=== PATIENT | female | born 1940 | race Caucasian/White ===

== ENCOUNTER 2021-02-06 11:35 | Outpatient (CLI) | payer MEDICARE, SELFPAY ==
[2021-02-06 11:46] LABS: Basophils Absolute Auto 0.03 K/mm3 (0.00-0.10); Basophils Percent Auto 0.4 % (0.0-1.0); Eosinophils Absolute Auto 0.14 K/mm3 (0.02-0.50); Eosinophils Percent Auto 1.7 % (1.0-6.0); Hematocrit 43.1 % (35.0-42.0); Hemoglobin 14.2 g/dL (11.7-13.8); Immature Granulocyte Absolute 0.03 K/mm3 (0.00-0.00); Immature Granulocyte Percent A 0.4 % (0.0-0.0); Lymphocytes Absolute Auto 1.98 K/mm3 (1.10-4.50); Lymphocytes Percent Auto 23.9 % (18.0-42.0); Mean Corpuscular HGB Conc 32.9 g/dL (32.0-36.0); Mean Corpuscular Hemoglobin 30.5 pg (27.0-31.0); Mean Corpuscular Volume 92.5 fL (78.0-102.0); Mean Platelet Volume 9.6 fl (9.2-11.8); Monocytes Absolute Auto 0.61 K/mm3 (0.10-0.90); Monocytes Percent Auto 7.4 % (2.0-11.0); Neutrophils Absolute Auto 5.5 K/mm3 (1.7-7.2); Neutrophils Percent Auto 66.2 % (50.0-70.0); Platelet Count Result 251 K/mm3 (150-420); Red Blood Count 4.66 M/mm3 (4.20-5.40); Red Cell Distribution Width 12.9 % (11.6-14.4); White Blood Count 8.3 K/mm3 (4.8-10.8)
[2021-02-06 11:54] LABS: Add Urine Microscopic? YES; Appearance Urine Clear (Clear); Bilirubin Urine Negative (Negative); Blood Urine Negative (Negative); Color Urine Yellow (Yellow); Glucose Urine UA Negative (Negative); Ketones Urine Negative (Negative); Leukocyte Esterase Ur 1+ (Negative); Nitrate Urine Negative (Negative); Protein Urine Negative (Negative); Urobilinogen Urine 0.2 mg/dL (0.2-1.0)
[2021-02-06 12:03] LABS: Bacteria Urine Trace /hpf; RBC Urine 0-2 /hpf (0-2); Squamous Epithelial Cell Urine Few /hpf (Few); WBC Urine 0-3 /hpf (0-3)
[2021-02-06 13:07] LABS: Alanine Aminotransferase 26 U/L (14-59); Albumin Level 3.8 g/dL (3.4-5.0); Alkaline Phosphatase 91 U/L (46-116); Anion Gap 8 mmol/L (8-16); Aspartate Amino Transferase 21 U/L (15-37); Bilirubin,Total 0.5 mg/dL (0.00-1.00); Blood Urea Nitrogen 22 mg/dL (7-18); Calcium 9.6 mg/dL (8.5-10.1); Carbon Dioxide 30 mmol/L (21-32); Chloride 102 mmol/L (98-108); Estimated Glomerular Filt Rate > 60; Glucose 80 mg/dL (70-99); Osmolality Calculated 292 mOsm/kg (285-295); Potassium 4.5 mmol/L (3.5-5.1); Sodium 140 mmol/L (136-145); Thyroid Stimulating Hormone 1.68 uIU/mL (0.36-3.74); Total Protein 7.3 g/dL (6.4-8.2)
== END 2021-02-06 11:36 | disposition home or self-care (01) ==
LOC: CHSLAB 11:38
PROVIDERS: PCP Internal Medicine; Visit Provider Internal Medicine
DX: I10 Essential (primary) hypertension (principal)
CPT/HCPCS: 36415; 80053; 81001; 84443; 85025

== ENCOUNTER 2021-09-09 16:20 | Outpatient (CLI) | payer MEDICARE, SELFPAY ==
[2021-09-09 16:34] LABS: Basophils Absolute Auto 0.05 K/mm3 (0.00-0.10); Basophils Percent Auto 0.7 % (0.0-1.0); Eosinophils Absolute Auto 0.13 K/mm3 (0.02-0.50); Eosinophils Percent Auto 1.9 % (1.0-6.0); Hematocrit 42.5 % (35.0-42.0); Hemoglobin 13.9 g/dL (11.7-13.8); Immature Granulocyte Absolute 0.02 K/mm3 (0.00-0.00); Immature Granulocyte Percent A 0.3 % (0.0-0.0); Lymphocytes Absolute Auto 1.79 K/mm3 (1.10-4.50); Lymphocytes Percent Auto 26.4 % (18.0-42.0); Mean Corpuscular HGB Conc 32.7 g/dL (32.0-36.0); Mean Corpuscular Hemoglobin 30.6 pg (27.0-31.0); Mean Corpuscular Volume 93.6 fL (78.0-102.0); Mean Platelet Volume 9.3 fl (9.2-11.8); Monocytes Percent Auto 8.8 % (2.0-11.0); Neutrophils Absolute Auto 4.2 K/mm3 (1.7-7.2); Neutrophils Percent Auto 61.9 % (50.0-70.0); Platelet Count Result 250 K/mm3 (150-420); Red Blood Count 4.54 M/mm3 (4.20-5.40); Red Cell Distribution Width 13.1 % (11.6-14.4); White Blood Count 6.8 K/mm3 (4.8-10.8)
[2021-09-09 16:45] LABS: Appearance Urine Clear (Clear); Bilirubin Urine Negative (Negative); Color Urine Brown (Yellow); Glucose Urine UA Negative (Negative); Ketones Urine Negative (Negative); Leukocyte Esterase Ur 2+ (Negative); Nitrate Urine Negative (Negative); Protein Urine Negative (Negative); Urobilinogen Urine 0.2 mg/dL (0.2-1.0); pH Urine 6.5 (5.0-8.0)
[2021-09-09 16:53] LABS: Alanine Aminotransferase 28 U/L (14-59); Albumin Level 3.7 g/dL (3.4-5.0); Alkaline Phosphatase 90 U/L (46-116); Anion Gap 10 mmol/L (8-16); Aspartate Amino Transferase 23 U/L (15-37); Bilirubin,Total 0.5 mg/dL (0.00-1.00); Blood Urea Nitrogen 25 mg/dL (7-18); Calcium 9.1 mg/dL (8.5-10.1); Carbon Dioxide 29 mmol/L (21-32); Chloride 104 mmol/L (98-108); Estimated Glomerular Filt Rate 59; Glucose 91 mg/dL (70-99); Osmolality Calculated 300 mOsm/kg (285-295); Potassium 4.4 mmol/L (3.5-5.1); Sodium 143 mmol/L (136-145); Total Protein 7.6 g/dL (6.4-8.2)
[2021-09-09 17:00] LABS: Add Urine Microscopic? YES; Bacteria Urine 1+ /hpf; Blood Urine Trace-Intact (Negative); RBC Urine 0-2 /hpf (0-2); Squamous Epithelial Cell Urine Few /hpf (Few); WBC Urine 21-30 /hpf (0-3)
== END 2021-09-09 16:21 | disposition home or self-care (01) ==
LOC: CHSLAB 16:22
PROVIDERS: PCP Internal Medicine; Visit Provider Internal Medicine
DX: R60.0 Localized edema (principal); I10 Essential (primary) hypertension
CPT/HCPCS: 36415; 80053; 81001; 85025; 85380

== ENCOUNTER 2021-09-10 10:42 | Outpatient (CLI) | payer MEDICARE, SELFPAY ==
--- NOTE | ~2021-09-10 | US_ITS ---
EXAMINATION: US venous doppler [facility] DATE: 09/10/2021 11:05 INDICATION: Lower limb edema. TECHNIQUE: Grayscale ultrasound images without and with compression and Doppler ultrasound images of the bilateral lower extremity veins were obtained. COMPARISON: None. FINDINGS: The visualized portions of right common femoral vein, profunda (deep) femoral vein, femoral vein, pop liteal vein, peroneal veins, posterior tibial veins, and greater saphenous vein outflow are patent. The visualized portions of left common femoral vein, profunda femoral vein, femoral vein, popliteal v ein, peroneal veins, posterior tibial veins, and greater saphenous vein outflow are patent. IMPRESSION: 1. No deep venous thrombosis. Reviewed, dictated and finalized at location A. [employer] CONSULTANT
== END 2021-09-10 10:43 | disposition home or self-care (01) ==
LOC: CHSIMG 10:45
PROVIDERS: PCP Internal Medicine; Visit Provider Internal Medicine
DX: R79.1 Abnormal coagulation profile (principal); M79.89 Other specified soft tissue disorders
CPT/HCPCS: 93970

== ENCOUNTER 2022-09-24 09:25 | Outpatient (CLI) | payer MEDICARE, SELFPAY ==
--- NOTE | ~2022-09-24 | XR_ITS ---
Clinical Indication: Hypertension, dyspnea PA and lateral views of the chest: Comparison: 08/01/2019 Findings: The lungs are clear, without evidence of focal consolidation or pleural effusion. Cardiome diastinal silhouette is within normal limits. 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 Bones and soft tissues are unremarkable. Impression: Clear lungs. Reviewed, dictated and finalized at location . A CONSULTANT Impression: Clear lungs.
[2022-09-24 09:39] LABS: Basophils Absolute Auto 0.02 K/mm3 (0.00-0.10); Basophils Percent Auto 0.3 % (0.0-1.0); Eosinophils Absolute Auto 0.16 K/mm3 (0.02-0.50); Eosinophils Percent Auto 2.5 % (1.0-6.0); Hematocrit 39.4 % (35.0-42.0); Hemoglobin 12.7 g/dL (11.7-13.8); Immature Granulocyte Absolute 0.01 K/mm3 (0.00-0.00); Immature Granulocyte Percent A 0.2 % (0.0-0.0); Lymphocytes Absolute Auto 1.35 K/mm3 (1.10-4.50); Lymphocytes Percent Auto 21.4 % (18.0-42.0); Mean Corpuscular HGB Conc 32.2 g/dL (32.0-36.0); Mean Corpuscular Hemoglobin 30.2 pg (27.0-31.0); Mean Corpuscular Volume 93.8 fL (78.0-102.0); Mean Platelet Volume 9.4 fl (9.2-11.8); Monocytes Absolute Auto 0.65 K/mm3 (0.10-0.90); Monocytes Percent Auto 10.3 % (2.0-11.0); Neutrophils Absolute Auto 4.1 K/mm3 (1.7-7.2); Neutrophils Percent Auto 65.3 % (50.0-70.0); Platelet Count Result 236 K/mm3 (150-420); Red Cell Distribution Width 13.7 % (11.6-14.4); White Blood Count 6.3 K/mm3 (4.8-10.8)
[2022-09-24 09:43] LABS: Add Urine Microscopic? YES; Appearance Urine Clear (Clear); Bilirubin Urine Negative (Negative); Blood Urine Trace-Intact (Negative); Color Urine Light Yellow (Yellow); Glucose Urine UA Negative (Negative); Ketones Urine Negative (Negative); Leukocyte Esterase Ur 2+ (Negative); Nitrate Urine Negative (Negative); Protein Urine Negative (Negative); Urobilinogen Urine 0.2 mg/dL (0.2-1.0)
--- NOTE | 2022-09-24 09:45 | ECG_ITS ---
Measurements Intervals [place] Rate: 64 P: 64 MI: 169 QRS: 80 QRSD: 98 T: 42 QT: 397 QTc: 412 Interpretive Statements SINUS RHYTHM MINIMAL Q WAVES- INF/LAT LEADS BASELINE WANDER- I, III BORDERLINE ECG NO PREVIOUS ECG AVAILABLE FOR COMPARISON Electronically Signed On 09-24-2022 10:25:42 MOBILE HEALTH VEHICLE OPERATOR by Roland Parker D.O.
[2022-09-24 09:49] LABS: RBC Urine 0-2 /hpf (0-2)
[2022-09-24 09:50] LABS: Bacteria Urine 1+ /hpf; Renal Epithelial Cells Urine Few /hpf; Squamous Epithelial Cell Urine Few /hpf (Few)
[2022-09-24 10:17] LABS: Alanine Aminotransferase 21 U/L (14-59); Albumin Level 3.5 g/dL (3.4-5.0); Alkaline Phosphatase 84 U/L (46-116); Anion Gap 6 mmol/L (8-16); Aspartate Amino Transferase 19 U/L (15-37); Bilirubin,Total 0.5 mg/dL (0.00-1.00); Blood Urea Nitrogen 21 mg/dL (7-18); Calcium 8.9 mg/dL (8.5-10.1); Carbon Dioxide 31 mmol/L (21-32); Chloride 102 mmol/L (98-108); Estimated Glomerular Filt Rate > 60; Glucose 81 mg/dL (70-99); NT Pro B Type Natriuretic Pept 231 pg/mL (0-450); Osmolality Calculated 290 mOsm/kg (285-295); Potassium 4.1 mmol/L (3.5-5.1); Sodium 139 mmol/L (136-145); Thyroid Stimulating Hormone 1.88 uIU/mL (0.36-3.74)
== END 2022-09-24 09:26 | disposition home or self-care (01) ==
LOC: CHSLAB 09:27
PROVIDERS: PCP Internal Medicine; Visit Provider Internal Medicine
DX: I10 Essential (primary) hypertension (principal); R06.00 Dyspnea, unspecified
CPT/HCPCS: 36415; 71046; 80053; 81001; 83880; 84443; 85025; 93005

== ENCOUNTER 2022-10-20 09:45 | Outpatient (CLI) | payer MEDICARE, SELFPAY ==
--- NOTE | 2022-10-20 11:00 | EST_ITS ---
Patient Info Name: Carly Ellison Age: 82 years : 1940 Gender: Female Ht: 61 in Wt: 147 lbs BSA: 1.71 m2 Technical Quality: Good Exam Date: 10/20/2022 10:58 AM Exam Location: [email or web address] Patient Status: Outpatient Admit Date: 10/20/2022 Staff Ordering Physician: Jesus Schaeffer MD Attending Provider: Jesus Schaeffer MD Exam Type: CA stress aram w NM Study Info A regadenoson stress test was performed. History/Risk Factors Hypertension: Yes Summary 1. 1. Negative lexiscan stress test for ischemic ST changes by ECG criteria. 2. 2. Stable hemodynamics throughout the test. 3. 3. Nuclear scan to follow and will be reported separately. Please correlate with it. Protocol: LEXISCAN Stress ECG Details Stage: REST Duration (min): 1 min : 56 sec HR (bpm): 57 SBP (mmHg): 123 DBP (mmHg): 72 Stage: REST Duration (min): 6 min : 12 sec HR (bpm): 62 SBP (mmHg): 123 DBP (mmHg): 72 Stage: STAGE 1 Duration (min): 0 min : 50 sec HR (bpm): 76 SBP (mmHg): 123 DBP (mmHg): 72 Stage: RECOVERY Duration (min): 0 min : 9 sec HR (bpm): 85 SBP (mmHg): 123 DBP (mmHg): 72 Stage: RECOVERY Duration (min): 1 min : 9 sec HR (bpm): 90 SBP (mmHg): 123 DBP (mmHg): 72 Stage: RECOVERY Duration (min): 2 min : 9 sec HR (bpm): 87 SBP (mmHg): 124 DBP (mmHg): 74 Stage: RECOVERY Duration (min): 3 min : 9 sec HR (bpm): 85 SBP (mmHg): 121 DBP (mmHg): 75 Stage: RECOVERY Duration (min): 4 min : 9 sec HR (bpm): 82 SBP (mmHg): 122 DBP (mmHg): 75 Stage: RECOVERY Duration (min): 5 min : 9 sec HR (bpm): 81 SBP (mmHg): 101 DBP (mmHg): 70 Stage: RECOVERY Duration (min): 6 min : 9 sec HR (bpm): 79 SBP (mmHg): 112 DBP (mmHg): 72 Stage: RECOVERY Duration (min): 6 min : 54 sec HR (bpm): 80 SBP (mmHg): 112 DBP (mmHg): 72 Rest HR: 62 bpm Peak HR: 92 bpm Rest Sys BP: 123 mmHg Peak Sys BP: 124 mmHg Max Pred HR: 139 bpm % Max Pred HR: 66 % Target HR: 118 bpm Max RPP: 11,408 bpm*mmHg Termination Reason: Completed Protocol Cardiac Symptoms: None Total Time: 0 min : 50 sec Rest Lundberg BP: 72 mmHg Peak Lundberg BP: 74 mmHg Total Dose: 0.4 mg Resting ECG Sinus Bradycardia. Stress ECG No abnormal ST/T wave changes. Arrhythmias Occasional PVCs. Report Signatures
--- NOTE | 2022-10-20 14:54 | WPDCARIOSTRE ---
Nuclear Stress Test INDICATIONS Indications: LOZA PROCEDURE Procedure Performed: Myocardial Perf Spect-Multi Procedure: Patient underwent a lexiscan stress test and was immediately injected with 33.4 mCi of cardiolyte. Multiple tomographic images were obtained. These are of good quality. There is a moderate size, mild severity lateral perfusion defect during stress imaging. A separate resting images were obtained after patient was injected with 10.31 mCi of cardiolyte. Multiple tomographic images were obtained. These are of good quality. There is a moderate size, mild severity lateral perfusion defect during rest imaging. CONCLUSION Conclusion: 1. Myocardial perfusion imaging demonstrating a fixed moderate size lateral perfusion defect suggestive of attenuation artifact. 2. No evidence of reversible ischemia. 3. Left ventriculogram demonstrates normal measured ejection fraction of 71%. No wall motion abnormalities. 4. TID score 0.92 is normal.
== END 2022-10-20 09:46 | disposition home or self-care (01) ==
LOC: CHSIMG 09:48
PROVIDERS: PCP Internal Medicine; Visit Provider Internal Medicine
DX: R06.09 Other forms of dyspnea (principal); I10 Essential (primary) hypertension
CPT/HCPCS: 78452; 93017; A9502; J2785

== ENCOUNTER 2022-10-27 12:22 | Outpatient (CLI) | payer MEDICARE, SELFPAY ==
--- NOTE | 2022-10-27 13:30 | ECHO_ITS ---
Patient Info Name: Carly Ellison Age: 82 years : 1940 Gender: Female Ht: 61 in Wt: 143 lbs BSA: 1.69 m2 HR: 62 bpm BP: 148 / 63 mmHg Technical Quality: Good Exam Date: 10/27/2022 1:35 PM Exam Location: [facility] Patient Status: Outpatient Admit Date: 10/27/2022 Staff Ordering Physician: Jesus Schaeffer MD Leadership Development Consultant: Tor Garner RDCS, RT Attending Provider: Jesus Schaeffer MD Exam Type: CA echo doppler color flow Study Info Indications R06.00 - Dyspnea, unspecified Complete two-dimensional, color flow and Doppler transthoracic echocardiogram is performed. Strain analysis performed. History/Risk Factors Hypertension: Yes Summary 1. Complete two-dimensional, color flow and Doppler transthoracic echocardiogram is performed. 2. Left ventricular chamber dimension is normal. 3. Left ventricular systolic function is normal, estimated at 60-65%. 4. The left ventricular diastolic function is abnormal. 5. E/e' 10 is mildly elevated. 6. Global longitudinal strain is normal at -20.2%. 7. There is mild aortic valve sclerosis. 8. There is moderate mitral valve regurgitation. 9. There is trace tricuspid valve regurgitation. Left Ventricle E/e' 10 is mildly elevated. Global longitudinal strain is normal at -20.2%. Left ventricular chamber dimension is normal. Left ventricular systolic function is normal, estimated at 60-65%. The left ventricular diastolic function is abnormal. Right Ventricle Right ventricular chamber dimension is normal. Right ventricular systolic function is normal. Left Atria Left atrial chamber dimension is normal. Right Atria Right atrial chamber dimension is normal. Aortic Valve The aortic valve is trileaflet. There is mild aortic valve sclerosis. There is no aortic valve stenosis. There is no aortic valve regurgitation. Pulmonic Valve There is no pulmonic regurgitation. Mitral Valve There is no mitral valve stenosis. There is moderate mitral valve regurgitation. Tricuspid Valve RVSP is not calculated due to an inadequate TR jet. There is trace tricuspid valve regurgitation. Pericardium/Pleural There is no pericardial effusion. Inferior Vena Cava Normal inferior vena cava with >50% collapse upon inspiration consistent with normal right atrial pressure, 5 mmHg. Aorta The aortic root size at the sinus of Valsalva is normal. Left Ventricular Outflow Tract Name Value Normal LVOT 2D LVOT Diameter 1.9 cm LVOT Doppler LVOT Peak Velocity 103 cm/s LVOT Peak Gradient 4 mmHg LVOT Mean Gradient 2 mmHg LVOT VTI 21 cm LVOT VTI/AV VTI Ratio 0.7 LVOT Stroke Volume 59 ml Mitral Valve Name Value Normal MV 2D/MM M
== END 2022-10-27 12:23 | disposition home or self-care (01) ==
PROVIDERS: PCP Internal Medicine; Visit Provider Internal Medicine
DX: R06.09 Other forms of dyspnea (principal); I10 Essential (primary) hypertension; I08.3 Combined rheumatic disorders of mitral, aortic and tricuspid valves
CPT/HCPCS: 93306

== ENCOUNTER 2022-10-28 08:17 | Outpatient (CLI) | payer MEDICARE, SELFPAY | END 2022-10-28 08:18 | disposition home or self-care (01) | LOC: CHSCARD 08:22 | PROVIDERS: PCP Internal Medicine; Visit Provider Internal Medicine | DX: R06.09 Other forms of dyspnea (principal); I10 Essential (primary) hypertension | CPT/HCPCS: 94060; 94726; 94729 ==

== ENCOUNTER 2023-06-16 09:59 | Outpatient (CLI) | payer MEDICARE, SELFPAY ==
--- NOTE | ~2023-06-16 | XR_ITS ---
AP and lateral views of the bilateral hips Clinical history: Pain Findings: No acute fracture or dislocation is seen. Osseous alignment is anatomic. There are minimal degenerative changes of bilateral hip joints. Soft tissues are unremarkable. 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 Reviewed, dictated and finalized at location . 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
[2023-06-16 10:57] LABS: Alanine Aminotransferase 20 U/L (14-59); Albumin Level 3.7 g/dL (3.4-5.0); Alkaline Phosphatase 83 U/L (46-116); Anion Gap 7 mmol/L (8-16); Aspartate Amino Transferase 18 U/L (15-37); Bilirubin,Total 0.6 mg/dL (0.00-1.00); Blood Urea Nitrogen 22 mg/dL (7-18); Calcium 9.8 mg/dL (8.5-10.1); Carbon Dioxide 30 mmol/L (21-32); Chloride 104 mmol/L (98-108); Estimated Glomerular Filt Rate > 60; Glucose 85 mg/dL (70-99); Osmolality Calculated 294 mOsm/kg (285-295); Potassium 4.8 mmol/L (3.5-5.1); Sodium 141 mmol/L (136-145); Total Protein 7.1 g/dL (6.4-8.2)
[2023-06-16 11:01] LABS: CRP < 0.5 mg/dL (0.0-0.9)
== END 2023-06-16 10:00 | disposition home or self-care (01) ==
LOC: CHSLAB 10:01
PROVIDERS: PCP Internal Medicine; Visit Provider Internal Medicine
DX: M25.559 Pain in unspecified hip (principal); M48.00 Spinal stenosis, site unspecified; I10 Essential (primary) hypertension
CPT/HCPCS: 36415; 73521; 80053; 86140

== ENCOUNTER 2024-03-22 13:57 | Outpatient (CLI) | payer MEDICARE, SELFPAY ==
[2024-03-22 14:14] LABS: Hematocrit 38.2 % (35.0-42.0); Hemoglobin 11.6 g/dL (11.7-13.8); Mean Corpuscular HGB Conc 30.4 g/dL (32-36); Mean Corpuscular Hemoglobin 24.3 pg (27.0-31.0); Mean Corpuscular Volume 80.1 fL (78.0-102.0); Mean Platelet Volume 8.7 fl (9.2-11.8); Platelet Count Result 249 K/mm3 (150-420); Red Blood Count 4.77 M/mm3 (4.20-5.40); Red Cell Distribution Width 19.3 % (11.6-14.4); White Blood Count 5.6 K/mm3 (4.8-10.8)
[2024-03-22 15:11] LABS: Alanine Aminotransferase 27 U/L (14-59); Albumin Level 3.5 g/dL (3.4-5.0); Alkaline Phosphatase 77 U/L (46-116); Anion Gap 6 mmol/L (4-12); Aspartate Amino Transferase 26 U/L (15-37); Bilirubin,Total 0.4 mg/dL (0.00-1.00); Blood Urea Nitrogen 26 mg/dL (7-18); CRP 0.6 mg/dL (0.0-0.9); Calcium 8.8 mg/dL (8.5-10.1); Carbon Dioxide 27 mmol/L (21-32); Chloride 104 mmol/L (98-108); Estimated Glomerular Filt Rate 54; Glucose 96 mg/dL (70-99); Osmolality Calculated 288 mOsm/kg (285-295); Potassium 4.4 mmol/L (3.5-5.1); Sodium 137 mmol/L (136-145); Total Protein 7.2 g/dL (6.4-8.2)
[2024-03-23 15:19] LABS: Cyclic Citrullinated Peptide <16 UNITS
[2024-03-24 08:48] LABS: Anti Nuclear Antibody Pattern Nuclear, Speckled
== END 2024-03-22 13:58 | disposition home or self-care (01) ==
LOC: CHSLAB 14:01
PROVIDERS: PCP Internal Medicine; Visit Provider Internal Medicine
DX: M13.0 Polyarthritis, unspecified (principal); I10 Essential (primary) hypertension
CPT/HCPCS: 36415; 80053; 85027; 86038; 86039; 86140; 86200

== ENCOUNTER 2024-12-30 08:48 | Outpatient (CLI) | payer MEDICARE, SELFPAY ==
--- OUTSIDE RECORDS SUMMARY | 2024-12-30 09:00 | XMS_ITS ---
Author Organization Unknown Address [address] [place] [phone] Phone Care Team Providers Care Servicer [employer] Name Role Phone SOPHIE DENISE Attending Unavailable ROCCO MARIEE Primary Unavailable Immunization Immunization Date Status Additional Notes Code Code System pneumococcal polysaccharide PPV23 05/18/2014 Completed 33 CVX pneumococcal polysaccharide PPV23 06/07/2014 Completed 33 CVX zoster live 06/26/2014 Completed 121 CVX Novel [id number] 06/07/2015 Completed 127 CVX Pneumococcal conjugate PCV 13 08/01/2019 Completed 133 CVX Influenza, split virus, quadrivalent, preservative 06/18/2017 Completed 158 C VX Influenza, split virus, quadrivalent, preservative 06/21/2019 Completed 158 C VX Influenza, adjuvanted, trivalent, PF 06/15/2018 Completed 168 CVX Influenza, adjuvanted, trivalent, PF 06/08/2020 Completed 168 CVX Influenza, adjuvanted, quadrivalent, PF 06/18/2021 Completed 205 CVX COVID-19, mRNA, LNP-S, PF, 3 0 mcg/0.3 mL dose 10/10/2020 Completed 208 CVX COVID-19, mRNA, LNP-S, PF, 3 0 mcg/0.3 mL dose 10/31/2020 Completed 208 CVX COVID-19, mRNA, LNP-S, PF, 3 0 mcg/0.3 mL dose 06/24/2021 Completed 208 CVX Mental Status Description Date Code Code System No Cognitive Impairments [id number] SNO MED-CT Results URINALYSIS DIPSTICK AUTO TASHA D - Collect Date/Time: 10/22/2024 10:26 [facility] ID: [id number] [place], [place], [id number] LOINC: 28419-0 Test Value Unit Reference Range Code Code System Flag UR SOURCE VOIDED COLOR YELLOW NORMAL: YELLOW 5778-6 LOINC CLARITY CLEAR NORMAL: CLEAR 68244-1 LOINC SPEC GRAVITY 1.020 NORMAL: 1.000-1.030 5811-5 LOINC PH 6.0 NORMAL: 5.0 - 6.5 5803-2 LOINC LEUK EST 1+ NORMAL: NEGATIVE 5799-2 LOINC A NITRATE NEGATIVE NORMAL: NEGATIVE PROTEIN NEGATIVE NORMAL: NEGATIVE 5804-0 LOINC GLUCOSE NEGATIVE NORMAL: NEGATIVE 29558-0 LOINC KETONES NEGATIVE NORMAL: NEGATIVE 35428-6 LOINC UROBILINOGEN 0.2 NORMAL: 0.2 - 1.0 5818-0 LOINC BILIRUBIN NEGATIVE NORMAL: NEGATIVE 93596-3 LOINC BLOOD NEGATIVE NORMAL: NEGATIVE 67704-9 LOINC Social History Type Status Start Date End Date Code Code Syst em Smoking History Never smoker (Never Smoked) [id number] SNOMED CT Sex Female Assessment You had the following problems:HYPERTENSIONCLOSED FRACTURE OF BONE Hospital Discharge Instructions Should you have any questions prior to discharge, please contact a member of your healthcare team. If you have left the hospital and have any questions, please contact your primary care physician. Reason For Referral No Data Found Problems Problem Start Date Resolved Date Status Code Code System HYPERTENSION active 69169769 SNOMED- CT CLOSED FRACTURE OF BONE active [id number] SNOMED-CT Allergies and Adverse Reactions Allergy Substance Reaction Severity Start Date Concern Status Co de Code System ADHESIVE Active No Known Allergies Active [id number] SNO MED-CT Plan of Treatment Sophie Established Visit 11/08/2024 US Echo With Color ([id number]) 09/21/2024 Sophie Established Visit 05/09/2025 Encounters Encounter Diagnosis Start Date Code Code Sys tem Raised antibody titer 10/22/2024 SNOMED -CT Personal Care Team Section Performer Name Performer Role Active Date Inactive KODI Mead PCP - Primary care physician 2024-05-30
--- OUTSIDE RECORDS SUMMARY | 2024-12-30 09:00 | XMS_ITS | Clinical Summary ---
Author Organization [facility] Address [address] [place] [address] Phone Care Team Providers Care Powerhouse Attendant Name Role Phone ROCCO GUSMAN, [facility] Primary Care Provider [phone] Reason for Visit and Chief Complaint The Chief Complaint is: Referred y Dr. Valiente for Lumbar and blt leg Problems Includes: Problems addressed during this encounter and other active Problems Current Visit Onset Date Resolved Date Provider Conditio n Status Chronic Obstructive Pulmonary Disease Unknown GIOVANNI Feliz TATY ACTUARIAL MANAGER-FPA, REVIVAL CLERK-BC Active Last Documented On 3 2:26PM ; [facility] Essential Hypertension Unknown GIOVANNI Feliz KUL P ACTUARIAL MANAGER-FPA, REVIVAL CLERK-BC Active Last Documented On 3 2:26PM ; [facility] Arthralgia Unknown GIOVANNI Feliz TATY ACTUARIAL MANAGER-FPA, REVIVAL CLERK-BC Active Last Documented On 3 2:25PM ; [facility] Plan of Treatment Patient was seen today for 2 chronic unstable conditions of the lumbosacral spine, and central nervous system.Without treatment patient is at risk for significant functional limitations resulting in diminished quality of life and impaired age appropriate activities of daily living. Multiple documents have been reviewed in combination with today's evaluation including imaging studies, outside provider notes, laboratory data, patient self-report questionnaires, and [place] prescription monitoring database entries. Significant social barriers exist to compliance resulting in limited prognosis. - Last Documented On 08/04/2023 4:19PM ; [facility] Education and Decision Aids were provided during visit for: Lifestyle education Last Documented On 3 3:15PM ; [facility] Assessments Includes: Assessments from this encounter Findings - [M47.896 - Other spondylosis, lumbar region] Lumbar spondylosis - Last Documented On 08/04/2023 4:19PM ; [facility] - [M54.51 - Vertebrogenic low back pain] Vertebrogenic low back pain - Last Documented On 08/04/2023 4:19PM ; [facility] - [M48.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, lumbar region with neurogenic claudication] Lumbar stenosis with neurogenic claudication - Last Documented On 08/04/2023 4:19PM ; [facility] - [M54.16 - Radiculopathy, lumbar region] Lumbar radiculopathy - Last Documented On 08/04/2023 4:19PM ; [facility] Instructions Includes: Instructions from this encounter Education and Decision Aids were provided during visit for: Lifestyle education Last Documented On 3 3:15PM ; [facility] Medical Equipment - Implanted Devices Includes: Current Devices No Medical Equipment Recorded Medications Includes: Medications discussed during this encounter and other current Medications New / Renewed during this visit ANTONIO CHEN on 08/04/2023 Meloxicam 7.5 MG Oral Tablet Provider: ANTONIO CHEN 30 day supply: 30 tablet, 1 refills Diagnosis: Spinal stenosis, lumbar region with neurogenic claudication One tablet daily with a meal Pharmacy: [facility] [address], [id number] - Last Documented On 3 6:20PM By GIOVANNI ALVAREZ ; [facility] Current Medications (continue as prescribed) Acetaminophen 500 MG Oral Tablet 02/23/2024 Provider : Diagnosis: Two pills every 8 hours as needed. Last Documented On 4 10:33AM By GIOVANNI ALVAREZ ; [facility] Meloxicam 7.5 MG Oral Tablet 02/02/2024 Provider: ANTONIO CHEN Diagnosis: Spinal stenosis, lumbar region with neurogenic claudication TAKE ONE TABLET BY MOUTH HO LY WITH A MEAL Last Documented On 4 10:33AM By GIOVANNI AGUILARBC ; [facility] Calcium + Vitamin D3 600-10 MG-MCG Oral Tablet 023 Provider: Diagnosis: Last Documented On 3 3:13PM By GIOVANNI POSEY [facility] ; [facility] AZO Urinary Pain Relief 95 MG Oral Tablet 08/04/2023 Provider: Diagnosis: As needed. Last Documented On 3 3:13PM By GIOVANNI POSEY [facility] ; [facility] Felodipine ER 5 MG Oral Tabl et Extended Release 24 Hour 11/15/2022 Provider: KODI VALIENTE MD Diagnosis: Last Documented On 3 3:13PM By GIOVANNI POSEY [facility] ; [facility] Medications Administered Includes: Administered Medications from this encounter No Administered Medications Recorded Vital Signs Includes: Vital Signs from this encounter Vital Name 08/04/2023 02:30P Blood Pressure Sitting R 122/62 BP Cuff Size Regular Pulse Rate-Sitting (bpm) 63 Temp-Oral (F) 97.4 Height (in) 61 Weight (lb) 142 Body Mass Index 26.8 Body Surface Area 1.6 Pain Level 3 Oxygen Saturation (%) 99 Last Documented: On 08/04/2023 2:33PM ; [facility] Results Includes: Results discussed during this encounter Drugs of abuse screen [facility] Ordered by GIOVANNI POSEY APRN-TIFFANIE, [facility] on 08/04/2023 Collected: Reported: 08/04/2023 15:22 Last Documented On 3 3:23PM ; [facility] Reviewed on 08/04/2023; All test results are final unless otherwise noted. Lot # & Exp. Date [id number] EXP 01/23/2024 (NEG) N (Normal) Last Documented On 3 3:22PM ; [facility] Amphetamines NEG (NEG) N (Normal) Last Documented On 3 3:22PM ; [facility] Barbiturates NEG (neg) N (Normal) Last Documented On 3 3:22PM ; [facility] Benzodiazepines NEG (neg) N (Normal) Last Documented On 3 3:22PM ; [facility] Cocaine NEG (neg) N (Normal) Last Documented On 3 3:22PM ; [facility] Ecstasy NEG (Neg) N (Normal) Last Documented On 3 3:22PM ; [facility] Methamphetamines NEG (neg) N (Normal) Last Documented On 3 3:22PM ; [facility] Methadone NEG (Neg) N (Normal) Last Documented On 3 3:22PM ; [facility] Morphine NEG (Neg) N (Normal) Last Documented On 3 3:22PM ; [facility] Oxycodone NEG (Neg) N (Normal) Last Documented On 3 3:22PM ; [facility] Phencyclidine NEG (NEG) N (Normal) Last Documented On 3 3:22PM ; [facility] TCA/Tricyclic Antidepressants NEG (neg) N (Normal) Last Documented On 3 3:22PM ; [facility] Cannabis NEG (neg) N (Normal) Last Documented On 3 3:22PM ; [facility] History of Present Illness Includes: History of Present Illness from this encounter HPI PHQ-9 Score: 2 Date: 08/04/2023 BPI Score: Date: Oswestry Score: 28% Date: 08/04/2023 SOAPP-R Score: 3 Date:08/04/2023 Pain Location: Lumbar Quality: Dull , sore, weak. tight. Radiation: BLT legs to above the knees. Severity: Timing: constant. Associated Sx: Weakness. Aggravating Factors:standing at the counter for to long, riding in a car, getting up and down, Alleviating Factors:hot shower, Past Tx:physical therapy ( 5 or more years ago), FAUSTO BENDER is an 83 year old female. - Allergy list reviewed - Problem list reviewed - Medication reconciliation performed - Medication list reviewed - Patient accompanied by the daughter - Prescription Drug Monitoring Program website checked. N/A - Last dose of medication? - Pain comes/goes - Primary pain location Lower back , - Primary pain duration Most of day - Secondary pain duration Comes and goes - Secondary pain location Legs - Pain is dull, aching - Pain is pressure like - Relieved by medication - Relieved by repositioning - Pain aggravated getting in/out of car - Pain aggravated going up stairs - Pain aggravated sitting - Pain aggravated by walking - Pain aggravated lifting - Pain aggravated bending - Pain radiating in both thighs - No vertigo Discussion: Referred by Dr Valiente for low back pain. Patient states she has had low back pain for at least 6 years, worsening in the last year or so. She was evaluated by a neurosurgeon 6 years ago who did not recommend any surgery. She did PT 6 years ago and continues to attempt her home therapy exercises but not consistently. She has pain that goes down both legs laterally to just above the knees and has a restricted feeling in her upper legs at times. Pain is worse after sitting in the car for an hour and then trying to get up. The transition is what causes the pain. Going up stairs is difficult for her because of the pain. Bending forward or lifting increases pain exponentially. She utilizes Ibuprofen 600mg 2-3 times daily. On average pain is 3/10 but gets up to 6/10 at times. She denies any sensory or motor changes. No loss of bowel or bladder control. We discussed starting her in PT and starting a daily long acting NSAID. We will do a phone visit and consider epidural at FU if not getting better. Imaging: All relevant imaging available was personally reviewed with the patient today with the following tests and results noted: MRI Lumbar 06/29/23 Disc bulging at multiple levels causing varying degrees of mild to moderate spinal stenosis this is worse at L3-L4. Modic type II changes of L2 through L5 more pronounced L2-L3. Ligamentum flavum hypertrophy at L2-L3, L3-L4 and L4-L5 Xray bilateral Hips 06/16/23 Minimal degenerative changes BUN 21, Creatinine 0.82, eGFR > 60, normal liver studies 09/24/22 Social History Description Last Updated Tobacco non-user 08/04/2023 Last Documented On 3 4:19PM ; [facility] Difficulty walking 08/04/2023 Last Documented On 3 4:19PM ; [facility] No consumption of alcohol 08/04/2023 Last Documented On 3 4:19PM ; [facility] Not using drugs 08/04/2023 Last Documented On 3 4:19PM ; [facility] Smoking Status Unknown Procedures and Surgical History Includes: Procedures from this encounter Procedures Code Diagnosis Performing Provider Service L ocation Service Date plan of care reviewed and agreed to Last Documented On 3 3:15PM ; [facility] plan of care reviewed and agreed to by t he patient Last Documented On 3 3:15PM ; [facility] use of tobacco assessment performed 1000F Last Documented On 3 2:14PM ; [facility] patient screened for future fall risk: documentation of any fall with injury in past year 1100F Last Documented On 3 2:22PM ; [facility] standardized depression screening: negative for symptoms 3351F Last Documented On 3 2:22PM ; [facility] review of medications documented 1160F Last Documented On 3 2:14PM ; [facility] screening for adult depression: impressi on and score two Last Documented On 3 2:22PM ; [facility] encouragement to exercise Last Documented On 3 3:15PM ; [facility] Reviewed & agreed to staff entries. Last Documented On 3 2:14PM ; [facility] Pain radiates to both sides of buttocks Last Documented On 3 2:15PM ; [facility] Clinical summary provided to patient Last Documented On 3 2:14PM ; [facility] SOAPP-R: total score 3 Last Documented On 3 2:15PM ; [facility] Surgical History Last Updated No Pacemaker 08/04/2023 Last Documented On 3 4:19PM ; [facility] Medical History Includes: Medical History addressed during this encounter Description Last Updated Denies a fear of falling. 08/04/2023 Last Documented On 3 4:19PM ; [facility] Has had no fall in the last 12 months. 1 10/04/2022 Last Documented On 3 4:19PM ; [facility] CT/MRI Lower body Jun 29, 2023 3 Last Documented On 3 4:19PM ; [facility] Currently wearing eyeglasses 08/04/2023 Last Documented On 3 4:19PM ; [facility] Moderate to severe pain 08/04/2023 Last Documented On 3 4:19PM ; [facility] No Pain Pump 08/04/2023 Last Documented On 3 4:19PM ; [facility] No Spinal cord stimulator 08/04/2023 Last Documented On 3 4:19PM ; [facility] Other method: 08/04/2023 Last Documented On 3 4:19PM ; [facility] Please list all illnesses/co nditions you have been diagnosed with: Blood pressure mild copd 08/04/2023 Last Documented On 3 4:19PM ; [facility] Please list all surgeries: B roken ankle Sep 1999 , 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 Subural Hematoma 06 29 2016 Bladder repair & hysterectomy 12 20 201708/04/2023 Last Documented On 3 4:19PM ; [facility] X-rays Lower body Jun 16 2023 08/04/2023 Last Documented On 3 4:19PM ; [facility] Family History Includes: Family History addressed during this encounter Description Last Updated Maternal history of Arthritis 08/04/2023 Last Documented On 3 4:19PM ; [facility] Paternal history of family history of is chemic heart disease 08/04/2023 Last Documented On 3 4:19PM ; [facility] Review of Systems Includes: Review of Systems from this encounter Systemic: No systemic symptoms other then noted and no recent weight loss. Head: No head symptoms other then noted. Neck: No neck pain. Otolaryngeal: No otolaryngeal symptoms other than noted. Hearing loss. Cardiovascular: No cardiovascular symptoms other than noted. Pulmonary: No pulmonary symptoms other than noted. Gastrointestinal: Normal appetite No GI symptoms other than noted. Genitourinary: No genitourinary symptoms other than noted. Increased urinary frequency and urinary loss of control. Endocrine: No endocrine symptoms other than noted. Muscle weakness and Weakness. Hematologic: No easy bleeding and no tendency for easy bruising. Musculoskeletal: No musculoskeletal symptoms other than noted. Back pain, ankle joint swelling, and pain localized to one or more joints. Neurological: No neurological symptoms other than noted and no fainting passing out with needles or medical procedures. Psychological: No sleep disturbances other than noted. Skin: No skin symptoms other than noted. Mental Status Includes: Mental Status from this encounter No Mental Status Recorded Functional Status Includes: Functional Status from this encounter No Functional Status Recorded Physical Exam Includes: Physical Exam from this encounter Allergies Includes: Active Allergies Substance Type Reaction Onset Date Resolved Date Statu s Adhesive Tape Allergy 08/04/2023 Activ e Last Documented On 4 10:12AM ; [facility] Encounters Encounter Provider Location Date Check-In Time Check-Out Time Diagnosis PAIN MANAGEMENT NEW CONSULT GIOVANNI Feliz TATY BEE, ANTONIO [facility] 08/04/20 23 2:08PM 3:16PM Lumbar Spondylosis,Lumb ar Radiculopathy,Sp inal Stenosis Lumbar with Neurogenic Claudication,Casimiro sopathy Low Back Pain Vertebrogenic Insurance Includes: Active Insurance Policies Plan Name Member ID Group # Subscriber Relationship Effect sophy Dates 1 - MEDICARE PART A CLAIMS/NGS [id number] VERLENE E KLOPMEIER Self 2 - [facility] [id number] VERLENE E KLOPMEIER Self Clinical Notes Includes: Clinical Notes from this encounter * Progress note Date Encounter Last Documented by 08/04/2023 PAIN MANAGEMENT NEW CONSULT Last documented on 08/04/2023; 4:19 PM, GIOVANNI Trini TATY BEE, DARIEL-ERIN; [facility] Active Problems & Conditions - Arthralgia - Chronic Obstructive Pulmonary Disease - Essential Hypertension Chief Complaint The Chief Complaint is: Referred y Dr. Valiente for Lumbar and blt leg. History of Present Illness PHQ-9 Score: 2 Date: 08/04/2023 BPI Score: Date: Oswestry Score: 28% Date: 08/04/2023 SOAPP-R Score: 3 Date:08/04/2023 Pain Location: Lumbar Quality: Dull , sore, weak. tight. Radiation: BLT legs to above the knees. Severity: Timing: constant. Associated Sx: Weakness. Aggravating Factors:standing at the counter for to long, riding in a car, getting up and down, Alleviating Factors:hot shower, Past Tx:physical therapy ( 5 or more years ago), FAUSTO BENDER is an 83 year old female. - Allergy list reviewed - Problem list reviewed - Medication reconciliation performed - Medication list reviewed - Patient accompanied by the daughter - Prescription Drug Monitoring Program website checked. N/A - Last dose of medication? - Pain comes/goes - Primary pain location Lower back , - Primary pain duration Most of day - Secondary pain duration Comes and goes - Secondary pain location Legs - Pain is dull, aching - Pain is pressure like - Relieved by medication - Relieved by repositioning - Pain aggravated getting in/out of car - Pain aggravated going up stairs - Pain aggravated sitting - Pain aggravated by walking - Pain aggravated lifting - Pain aggravated bending - Pain radiating in both thighs - No vertigo Discussion: Referred by Dr Valiente for low back pain. Patient states she has had low back pain for at least 6 years, worsening in the last year or so. She was evaluated by a neurosurgeon 6 years ago who did not recommend any surgery. She did PT 6 years ago and continues to attempt her home therapy exercises but not consistently. She has pain that goes down both legs laterally to just above the knees and has a restricted feeling in her upper legs at times. Pain is worse after sitting in the car for an hour and then trying to get up. The transition is what causes the pain. Going up stairs is difficult for her because of the pain. Bending forward or lifting increases pain exponentially. She utilizes Ibuprofen 600mg 2-3 times daily. On average pain is 3/10 but gets up to 6/10 at times. She denies any sensory or motor changes. No loss of bowel or bladder control. We discussed starting her in PT and starting a daily long acting NSAID. We will do a phone visit and consider epidural at FU if not getting better. Imaging: All relevant imaging available was personally reviewed with the patient today with the following tests and results noted: MRI Lumbar 06/29/23 Disc bulging at multiple levels causing varying degrees of mild to moderate spinal stenosis this is worse at L3-L4. Modic type II changes of L2 through L5 more pronounced L2-L3. Ligamentum flavum hypertrophy at L2-L3, L3-L4 and L4-L5 Xray bilateral Hips 06/16/23 Minimal degenerative changes BUN 21, Creatinine 0.82, eGFR > 60, normal liver studies 09/24/22 Current Medication - Alive Multi-Vitamin Oral Liquid One tablet daily 0 days, 0 refills - [facility] Urinary Pain Relief 95 MG Oral Tablet As needed., 0 days, 0 refills - Calcium + Vitamin D3 600-10 MG-MCG Oral Tablet One tablet daily 0 days, 0 refills - [facility] Ibuprofen 200 MG Oral Tablet As needed., 0 days, 0 refills - Felodipine ER 5 MG Oral Tablet Extended Release 24 Hour One tablet daily 90 days, 0 refills Past Medical/Surgical History Reported: Other method:, Please list all illnesses/conditions you have been diagnosed with: Blood pressure mild copd, and Please list all surgeries: Broken ankle Sep 1999 , 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 Subural Hematoma 06 29 2016 Bladder repair & hysterectomy 12 20 2017. Medical: Currently wearing eyeglasses and orthopedic history Left Knee Score mild pain Moderate to severe pain. No Spinal cord stimulator and no Pain Pump. Surgical / Procedural: No Pacemaker. Tests: X-rays Lower body Jun [address]/MRI Lower body Jun 29, 2023. Physical Trauma: Has had no fall in the last 12 months. and Denies a fear of falling. Social History Difficulty walking. Tobacco use: Tobacco non-user. Alcohol: No consumption of alcohol. Drug Use: Not using drugs. Allergies - Adhesive Tape Family History Paternal: Ischemic heart disease Maternal: Arthritis Review Of Systems Systemic: No systemic symptoms other then noted and no recent weight loss. Head: No head symptoms other then noted. Neck: No neck pain. Otolaryngeal: No otolaryngeal symptoms other than noted. Hearing loss. Cardiovascular: No cardiovascular symptoms other than noted. Pulmonary: No pulmonary symptoms other than noted. Gastrointestinal: Normal appetite No GI symptoms other than noted. Genitourinary: No genitourinary symptoms other than noted. Increased urinary frequency and urinary loss of control. Endocrine: No endocrine symptoms other than noted. Muscle weakness and Weakness. Hematologic: No easy bleeding and no tendency for easy bruising. Musculoskeletal: No musculoskeletal symptoms other than noted. Back pain, ankle joint swelling, and pain localized to one or more joints. Neurological: No neurological symptoms other than noted and no fainting passing out with needles or medical procedures. Psychological: No sleep disturbances other than noted. Skin: No skin symptoms other than noted. Physical Findings - Vitals taken 08/04/2023 02:30 pm BP-Sitting R 122/62 mmHg BP Cuff Size Regular Pulse Rate-Sitting 63 bpm Temp-Oral 97.4 F Height 61 in Weight 142 lbs Body Mass Index 26.8 kg/m2 Body Surface Area 1.6 m2 Pain Level 3 Pain Level Note Lumbar Oxygen Saturation 99 % Vital Signs: - Pain level by numeric rating scale 6 with activity. Musculoskeletal System: General/bilateral: Musculoskeletal Scales: Value Lumbar oswestry score 28 Psychiatric: Psychiatric: Value PHQ9 score: 2 Constitutional: Well developed. Well nourished. No acute distress. HEENT: NC/AT. Anicteric. Clear Conjunctiva. PERRLA. MM's pink/moist. No discharge via nares. No discharge via EAC. Neck supple. No thyromegally. No palpable masses. No lymphadenopathy in cervical chain bilaterally. CVS: RRR. No murmurs. No peripheral edema. Pulmonary: CTA bilaterally. No wheezes. No rales. No crackles. No rubs. Normal chest expansion. Spine/MSK: Non tender lumbar spine and facet joints. Positive facet loading bilaterally. Negative straight leg and thigh thrust bilaterally. Torrey's produces lateral hip pain bilaterally. Gait: Not antalgic. No steppage gait. No Trendelenburg gait. No circumspected gait pattern. Neuro: Awake. Alert. Oriented x3. DTR's intact in all extremities. DTR's equal in all extremities. No sensory deficit. No motor deficit. Psych: No apparent distress. Mood normal. Affect normal. No pain behaviors. Skin: Normal. [place], warm, dry. Tests - Test: Drugs of abuse screen Report Date: 08/04/2023 Lot # & Exp. Date [id number] EXP 01/23/2024 Normal Amphetamines NEG Normal Barbiturates NEG Normal Benzodiazepines NEG Normal Cocaine NEG Normal Ecstasy NEG Normal Methamphetamines NEG Normal Methadone NEG Normal Morphine NEG Normal Oxycodone NEG Normal Phencyclidine NEG Normal TCA/Tricyclic Antidepressants NEG Normal Cannabis NEG Normal Educational Testing: Questionnaires PHQ-9: Value SOAPP-R: total score 3 Assessment - [M47.896 - Other spondylosis, lumbar region] Lumbar spondylosis - [M54.51 - Vertebrogenic low back pain] Vertebrogenic low back pain - [M48.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, lumbar region with neurogenic claudication] Lumbar stenosis with neurogenic claudication - [M54.16 - Radiculopathy, lumbar region] Lumbar radiculopathy Therapy - Reviewed & agreed to staff entries. - Pain radiates to both sides of buttocks. - Encouragement to exercise. - Clinical summary provided to patient. - Plan of care reviewed and agreed to by the patient. Counseling/Education - Lifestyle education Discussed Start physical therapy with a daily long acting NSAID. Meloxicam sent to pharmacy.. Stop Ibuprofen and Advil, It is ok to take Tylenol if needed. We will talk at a phone visit in 6 weeks or so to see how therapy is going and if needed schedule for epidural steroid injection at that time. In the future we may consider the MILD procedure for the spinal stenosis and/or the Intracept procedure for the vertebrogenic pain. Plan StartCited - Chronic pain syndrome In office procedures/*Clia Waived Labs: Urine Drug Screen EndCited StartCited - Spinal stenosis, lumbar region with neurogenic claudication Therapy/Physical Therapy: Physical Therapy Instructions: Evaluate and Treat. Establish HEP. Meloxicam 7.5 MG tablet One tablet daily with a meal, 30 days, 1 refills EndCited Patient was seen today for 2 chronic unstable conditions of the lumbosacral spine, and central nervous system.Without treatment patient is at risk for significant functional limitations resulting in diminished quality of life and impaired age appropriate activities of daily living. Multiple documents have been reviewed in combination with today's evaluation including imaging studies, outside provider notes, laboratory data, patient self-report questionnaires, and [place] prescription monitoring database entries. Significant social barriers exist to compliance resulting in limited prognosis. Practice Management Use of tobacco assessment performed and patient screened for future fall risk documentation of any fall with injury in past year Review of medications documented; Standardized depression screening: negative for symptoms and for adult impression and score two; [04984] New outpatient, medically appropriate H&P, moderate level decision making, 45-59 minutes. A total of [45 ] minutes were spent caring for this patient. Please see details of care in the notes above. Results of this interaction were communicated directly to the patient's referring and/or primary care provider. All imaging studies and test results discussed in the above document were personally reviewed and evaluated by the performing provider. For all patients on acute or chronic opioids, ongoing need for opioid analgesia is assessed at each visit with consideration of discontinuation or wean to lowest effective dose when possible and appropriate. Contents of this document have been edited for correctness, but may be subject to typographical or lpta errors. Verify all diagnoses, medications, dosages, and patient instructions with patient and/or the originator of this document. Care Team - KODI VALIENTE MD - Primary Care Health Reminders - Assess Blood Pressure satisfied 08/04/2023. - Assess BMI satisfied 08/04/2023. - Assess Screening for Fall Risk satisfied 08/04/2023. - Assess Tobacco Use satisfied 08/04/2023. - Depression Screening satisfied 08/04/2023. - Follow up plan for Depression Screening satisfied 08/04/2023.
--- OUTSIDE RECORDS SUMMARY | 2024-12-30 09:00 | XMS_ITS ---
Author Organization Unknown Address [address] [place] [phone] Phone Care Team Providers Care Fish Inspector Name Role Phone CHAYITO MACHUCA Attending Unavailable ROCCO MARIEE Primary Unavailable Immunization Immunization Date Status Additional Notes Code Code System pneumococcal polysaccharide PPV23 05/18/2014 Completed 33 CVX pneumococcal polysaccharide PPV23 06/07/2014 Completed 33 CVX zoster live 06/26/2014 Completed 121 CVX Novel [id number] 06/07/2015 Completed 127 CVX Pneumococcal conjugate PCV [...] Date Code Code System No Cognitive Impairments 30375043 SNO MED-CT Social History Type Status Start Date End Date Code Code Syst em Smoking History Never smoker (Never Smoked) 563359033 SNOMED CT Sex Female Assessment You had [...] Date Status Code Code System HYPERTENSION active 72770913 SNOMED- CT CLOSED FRACTURE OF BONE active 835222 000 SNOMED-CT Allergies and Adverse Reactions Allergy Substance Reaction Severity Start Date Concern Status Co de Code System ADHESIVE Active No Known Allergies Active 545034272 SNO MED-CT Plan of Treatment Emil Established Visit 11/08/2024 US Echo With Color (74431) 09/21/2024 Emil Established Visit 05/09/2025 Encounters Encounter Diagnosis Start Date Code Code Sys tem Mitral valve regurgitation 09/01/2024 33744306 S NOMED-CT Personal Care Team Section Performer Name Performer Role Active Date Inactive KODI Mead PCP - Primary care physician 2024-05-30
--- OUTSIDE RECORDS SUMMARY | 2024-12-30 09:00 | XMS_ITS ---
Care Plan - [facility] Created on: December 30, 2024 FAUSTO BENDER : 1940 Sex: Female Author Organization [facility] Address [address] [place] [address] Phone Care Team Providers Care Mainframe Systems Administrator Name Role Phone ROCCO GUSMAN, KODI Primary Care Provider [phone]
--- OUTSIDE RECORDS SUMMARY | 2024-12-30 09:00 | XMS_ITS | Clinical Summary ---
Author Organization [facility] Address [address] [place] [address] Care Team Providers Care Childcare Aide Name Role Phone Kinza Alonso MD Unavailable Jesus Schaeffer MD Primary Care Provider [phone] Placido Bajwa MD Unavailable [phone] Allergies No known active allergies Medications felodipine ER (PLENDIL) 5 MG 24 hr tablet Take 1 tablet (5 mg total) by mouth nightly at bedtime. Active meloxicam (MOBIC) 7.5 MG tablet Take 1 tablet (7.5 mg total) by mouth daily. Active acetaminophen (TYLENOL) 500 MG tablet Acetaminophen 500 MG Oral Tablet QTY: 0 tablet Days: 0 Refills: 0 Written: 02/23/24 Patient Instructions: Two pills every 8 hours as needed. 4 Active ferrous sulfate, 65 mg elemental, 325 (65 FE) MG tablet Take 1 tablet (325 mg total) by mouth daily with breakfast. Active omeprazole EC (PRILOSEC OTC) 20 MG tablet Take 1 tablet (20 mg total) by mouth daily. Active [place]-Gluc osamine-Vit D (OSTEO BI-FLEX ONE PER DAY OR) Active Pumpkin Seed-Soy Germ (AZO BLADDER CONTROL/GO-LES S OR) Active multi vitamin/minera ls (THERA-M ENHANCED) tablet Take 1 tablet by mouth daily. Active furosemide (LASIX) 40 MG tablet Take 1 tablet (40 mg total) by mouth daily. 7 tablet 4 Active potassium chloride CR (KLOR-CON M) 20 MEQ tablet Take 1 tablet (20 mEq total) by mouth daily. 7 tablet 4 Active Candesartan Cilexetil-HCTZ 16-12.5 MG Tab Take 1 tablet by mouth daily. 30 tablet 11 4 Active Active Problems No known active problems Encounters Date Type Department Care Team Description 10/14/2024 Telephone [facility] [address] [place] [address] Kinza Alonso MD Appointment Request from Last 3 Months Family History Medical History Relation Comments CHF Father Heart Attack Father CHF Mother Relation Status Comments Father Mother Social History Tobacco Use Types Packs/Day Years Used Date Smoking Tobacco: Never Tobacco Cessation:Counseling Given: Not Answered Alcohol Use Standard Drinks/Week Comments Never 0 (1 standard drink = 0.6 oz pur e alcohol) Comments Unknown Sex and Gender Information Value Date Recorded Sex Assigned at Not on file Legal Sex Female 2:29 PM BREAD STACKER Gender Identity Not on file Sexual Orientation Not on file Last Filed Vital Signs Vital Sign Reading Time Taken Comments Blood Pressure 143/78 09/01/2024 2:36 PM BREAD STACKER Pulse 67 09/01/2024 2:36 PM BREAD STACKER Temperature - - Respiratory Rate 16 09/01/2024 2:36 PM BREAD STACKER Oxygen Saturation - - Inhaled Oxygen Concentration - - Weight 65.3 kg (144 lb) 09/01/2024 2:36 PM BREAD STACKER Height 154.9 cm (5' 1 ) 09/01/2024 2:36 PM BREAD STACKER Body Mass Index 27.21 09/01/2024 2:36 PM BREAD STACKER Plan of Treatment Upcoming Encounters Date Type Department Care Team (Late st Contact Info) Description 03/02/2025 11:15 AM CDT Office Visit [facility] [address] [address] Kinza Alonso MD [address] [place] [address] Health Maintenance Due Date Last Done Comments DTaP, Tdap and Td Vaccines ( 1 - Tdap) 1959 Annual Medicare Wellness Visit 2006 Dexa Scan (General) 2006 Zoster Vaccines (2 of 3) 08/21/2014 06/26/2014 RSV Immunization or 60+ Years (1 - 1-dose 75+ series) 2016 COVID-19 Vaccine (4 - 2023-2 5 season) 2024 06/24/2021, 10/31/2020, 10/10/2020 Pneumococcal Vaccine: 50+ Years Completed 08/01/2019, 06/07/2014, 05/18/2014 Meningococcal B Vaccine Aged Out No l onger eligible based on patient's age to complete this topic Meningococcal Vaccine Aged Out No dick yamil eligible based on patient's age to complete this topic RSV Immunizations Under 20 Months Aged Out No longer eligible b ased on patient's age to complete this topic [place] [address] [place] [address] MEDICARE Care Teams Childcare Aide Relationship Specialty Start Date End Date Jesus Schaeffer MD [address] [place] [address] PCP - General INTERNAL MEDICINE 08/12/24 Kinza Alonso MD [address] [place] [address] [place] [employer] Up [employer] CARDIOVASCULAR DISEASE 08/12/24 Placido Bajwa MD [address] [place] [phone] (Work) ANESTHESIOLOGY PAIN MEDICINE 10/20/24
--- OUTSIDE RECORDS SUMMARY | 2024-12-30 09:01 | XMS_ITS | Clinical Summary ---
Author Organization [facility] Address [address] [place] [address] Phone Care Team Providers Care Commercial Specialist Name Role Phone ROCCO GUSMAN, [facility] Primary Care Provider [phone] Reason for Visit and Chief Complaint The Chief Complaint is: 2 MONTH FOLLOW UP Problems Includes: Problems addressed during this encounter and other active Problems All Visits Onset Date Resolved Date Provider Condition S tatus Chronic Obstructive Pulmonary Disease Unknown GIOVANNI G TATY BIOTECH PRODUCTION SPECIALIST-FPA, HELICOPTER ENGINEER-BC Active Last Documented On 3 2:26PM ; [facility] Essential Hypertension Unknown GIOVANNI G KUL P BIOTECH PRODUCTION SPECIALIST-FPA, HELICOPTER ENGINEER-BC Active Last Documented On 3 2:26PM ; [facility] Arthralgia Unknown GIOVANNI G TATY BIOTECH PRODUCTION SPECIALIST-FPA, HELICOPTER ENGINEER-BC Active Last Documented On 3 2:25PM ; [facility] Plan of Treatment Patient was [...] notes, laboratory data, patient self-report questionnaires, and [place] prescription monitoring database entries. Significant social barriers exist to compliance resulting in limited prognosis. - Last Documented On 10/01/2023 11:53AM ; [facility] Education and Decision Aids were provided during visit for: Lifestyle education Last Documented On 4 3:58PM ; [facility] Assessments Includes: Assessments from this encounter Findings - [M47.896 - Other spondylosis, lumbar region] Lumbar spondylosis - Last Documented On 10/01/2023 11:53AM ; [facility] - [M54.51 - Vertebrogenic low back pain] Vertebrogenic low back pain - Last Documented On 10/01/2023 11:53AM ; [facility] - [M48.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, lumbar region with neurogenic claudication] Lumbar stenosis with neurogenic claudication - Last Documented On 10/01/2023 11:53AM ; [facility] - [M54.16 - Radiculopathy, lumbar region] Lumbar radiculopathy - Last Documented On 10/01/2023 11:53AM ; [facility] Instructions Includes: Instructions from this encounter Education and Decision Aids were provided during visit for: Lifestyle education Last Documented On 4 3:58PM ; [facility] Medical Equipment - Implanted Devices Includes: Current Devices No Medical Equipment Recorded Medications Includes: Medications discussed during this encounter and other current Medications Discontinued / Stopped on this date on 08/04/2023 [facility] Ibuprofen 200 MG Oral Tablet Provider : Diagnosis: Last Documented On 4 3:59PM By Monique CHERY ; [facility] Alive Multi-Vitamin Oral Liquid Provider: Diagnosis: Last Documented On 4 3:59PM By Monique CHERY ; [facility] Current Medications (continue as prescribed) Acetaminophen 500 MG Oral Tablet 02/23/2024 Provider : Diagnosis: Two pills every 8 hours as needed. Last Documented On 4 10:33AM By GIOVANNI VIEIRA-ERIN ; [facility] Meloxicam 7.5 MG Oral Tablet 02/02/2024 Provider: GIOVANNI POSEY APRN-FPA, DARIEL-BC Diagnosis: Spinal stenosis, lumbar region with neurogenic claudication TAKE ONE TABLET BY MOUTH HO LY WITH A MEAL Last Documented On 4 10:33AM By GIOVANNI ALVAREZ ; [facility] Calcium + Vitamin D3 600-10 MG-MCG Oral Tablet 023 Provider: Diagnosis: Last Documented On 3 3:13PM By GIOVANNI ALVAREZ ; [facility] AZO Urinary Pain Relief 95 MG Oral Tablet 08/04/2023 Provider: Diagnosis: As needed. Last Documented On 3 3:13PM By GIOVANNI ALVAREZ ; [facility] Felodipine ER 5 MG Oral Tabl et Extended Release 24 Hour 11/15/2022 Provider: KODI VALIENTE MD Diagnosis: Last Documented On 3 3:13PM By GIOVANNI ALVAREZ ; [facility] Medications Administered Includes: Administered Medications from this encounter No Administered Medications Recorded Vital Signs Includes: Vital Signs from this encounter Vital Name 09/29/2023 04:00P Temp-Oral (F) 98 Height (in) 61 Weight (lb) 142 Body Mass Index 26.8 Body Surface Area 1.6 Pain Level 2 Last Documented: On 09/29/2023 4:00PM ; [facility] Results Includes: Results discussed during this encounter No Results Recorded For Specified Dates History of Present Illness Includes: History of [...] down, Alleviating Factors:hot shower, Past Tx:physical therapy low back 08/14/23- 09/29/23 11 visits has a visit scheduled 08/31 FAUSTO BENDER is an 83 year old [...] in both thighs - No vertigo Discussion: FU after PT for low back pain with radicular symptoms. She did PT from 08/14/23- 09/29/23 attending 11 visits and has one scheduled 10/01/23. She feels like the pain is much better. No longer having radicular symptoms. Her back pain is mild now and pain in the R hip with standing for long periods of time, sitting for long periods, and then stepping upwards/putting pressure on her R foot. On average pain is 2/10. With weather changes her pain is worse but normally she feels like she is doing well. She continues to utilize Tylenol if needed. She continues on Meloxicam. I advised her to have PCP fill medication in the future and call me as needed. She is agreeable to this plan. FIRST VISIT 08/04/23: Referred by Dr Valiente for low back [...] Updated Tobacco non-user 08/04/2023 Last Documented On 4 3:58PM ; [facility] Difficulty walking 08/04/2023 Last Documented On 4 3:58PM ; [facility] No consumption of alcohol 08/04/2023 Last Documented On 4 3:58PM ; [facility] Not using drugs 08/04/2023 Last Documented On 4 3:58PM ; [facility] Smoking Status Unknown Procedures and Surgical History Includes: Procedures from this encounter Procedures Code Diagnosis Performing Provider Service L ocation Service Date plan of care reviewed and agreed to Last Documented On 4 3:58PM ; [facility] plan of care reviewed and agreed to by t shara patient Last Documented On 4 3:58PM ; [facility] use of tobacco assessment performed 1000F Last Documented On 4 3:58PM ; [facility] patient screened for future fall risk: documentation of any fall with injury in past year 1100F Last Documented On 4 3:58PM ; [facility] standardized depression screening: negative for symptoms 3351F Last Documented On 4 3:58PM ; [facility] review of medications documented 1160F Last Documented On 4 3:58PM ; [facility] screening for adult depression: impressi on and score two Last Documented On 4 3:58PM ; [facility] encouragement to exercise Last Documented On 4 3:58PM ; [facility] Reviewed & agreed to staff entries. Last Documented On 4 3:58PM ; [facility] Pain radiates to both sides of buttocks Last Documented On 4 3:58PM ; [facility] Clinical summary provided to patient Last Documented On 4 3:58PM ; [facility] SOAPP-R: total score 3 Last Documented On 4 3:58PM ; [facility] Surgical History Last Updated No Pacemaker 08/04/2023 Last Documented On 4 3:58PM ; [facility] Medical History Includes: Medical History addressed during this encounter Description Last Updated Denies a fear of falling. 08/04/2023 Last Documented On 4 3:58PM ; [facility] Has had no fall in the last 12 months. 1 10/04/2022 Last Documented On 4 3:58PM ; [facility] CT/MRI Lower body Jun 29, 2023 3 Last Documented On 4 3:58PM ; [facility] Currently wearing eyeglasses 08/04/2023 Last Documented On 4 3:58PM ; [facility] Moderate to severe pain 08/04/2023 Last Documented On 4 3:58PM ; [facility] No Pain Pump 08/04/2023 Last Documented On 4 3:58PM ; [facility] No Spinal cord stimulator 08/04/2023 Last Documented On 4 3:58PM ; [facility] Other method: 08/04/2023 Last Documented On 4 3:58PM ; [facility] Please list all illnesses/co nditions you have been diagnosed with: Blood pressure mild copd 08/04/2023 Last Documented On 4 3:58PM ; [facility] Please list all surgeries: B roken ankle Sep 1999 , 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 Subural Hematoma 06 29 2016 Bladder repair & hysterectomy 12 20 201708/04/2023 Last Documented On 4 3:58PM ; [facility] X-rays Lower body Jun 16 2023 08/04/2023 Last Documented On 4 3:58PM ; [facility] Family History Includes: Family History addressed during this encounter Description Last Updated Maternal history of Arthritis 08/04/2023 Last Documented On 4 3:58PM ; [facility] Paternal history of family history of is chemic heart disease 08/04/2023 Last Documented On 4 3:58PM ; [facility] Review of Systems Includes: Review [...] e Last Documented On 4 10:12AM ; [facility] Encounters Encounter Provider Location Date Check-In Time Check-Out Time Diagnosis [facility] GIOVANNI BEE, ANTONIO [facility] 09/29/19 24 3:58PM 4:48PM Lumbar Spondylosis,Lumba r Radiculopathy,Spi nal Stenosis Lumbar with Neurogenic Claudication,Dors opathy Low Back Pain Vertebrogenic Insurance Includes: Active Insurance Policies Plan Name Member ID Group # Subscriber Relationship Effect sophy Dates 1 - MEDICARE PART A CLAIMS/NGS [id number] FAUSTO BENDER Self 2 - [facility] [id number] JAMILE Boubacar BENSONOPMEIER Self Clinical Notes Includes: Clinical Notes from this encounter * Progress note Date Encounter Last Documented by 09/29/2023 TELEHEALTH Last documented on 10/01/2023; 11:53 AM, GIOVANNI BEE, ANTONIO; [facility] Active Problems & Conditions - Arthralgia - Chronic Obstructive Pulmonary Disease - Essential Hypertension Chief Complaint The Chief Complaint is: 2 MONTH FOLLOW UP. History of Present Illness PHQ-9 Score: 2 [...] down, Alleviating Factors:hot shower, Past Tx:physical therapy low back 08/14/23- 09/29/23 11 visits has a visit scheduled 08/31 FAUSTO BENDER is an 83 year old [...] in both thighs - No vertigo Discussion: FU after PT for low back pain with radicular symptoms. She did PT from 08/14/23- 09/29/23 attending 11 visits and has one scheduled 10/01/23. She feels like the pain is much better. No longer having radicular symptoms. Her back pain is mild now and pain in the R hip with standing for long periods of time, sitting for long periods, and then stepping upwards/putting pressure on her R foot. On average pain is 2/10. With weather changes her pain is worse but normally she feels like she is doing well. She continues to utilize Tylenol if needed. She continues on Meloxicam. I advised her to have PCP fill medication in the future and call me as needed. She is agreeable to this plan. FIRST VISIT 08/04/23: Referred by Dr Valiente for low back [...] normal liver studies 09/24/22 Current Medication - AZO Urinary Pain Relief 95 MG Oral Tablet As needed., 0 days, 0 refills - Calcium + Vitamin D3 600-10 MG-MCG Oral Tablet One tablet daily 0 days, 0 refills - Felodipine ER 5 MG Oral Tablet Extended Release 24 Hour One tablet daily 90 days, 0 refills - Meloxicam 7.5 MG Oral Tablet TAKE ONE TABLET BY MOUTH DAILY WITH A MEAL, 30 days, 2 refills Past Medical/Surgical History Reported: Other method:, [...] Procedural: No Pacemaker. Tests: X-rays Lower body Oct [address]/MRI Lower body Jun 29, [...] than noted. Physical Findings - Vitals taken 09/29/2023 04:00 pm Temp-Oral 98 F Height 61 in Weight 142 lbs Body Mass Index 26.8 kg/m2 Body Surface Area 1.6 m2 Pain Level 2 Pain Level Note lUMBAR AND RIGHT HIP Musculoskeletal System: General/bilateral: Musculoskeletal Scales: Value Lumbar oswestry score 28 Psychiatric: Psychiatric: Value PHQ9 score: 2 Tests Educational Testing: Questionnaires PHQ-9: Value SOAPP-R: total [...] the patient. Counseling/Education - Lifestyle education Discussed Continue current medications. FU as needed. Consider lumbar epidural. In the future we may consider the MILD procedure for the spinal stenosis and/or the Intracept procedure for the vertebrogenic pain. Plan Patient was seen today for 2 chronic unstable conditions of the lumbosacral spine, and central nervous system.Without treatment patient is at risk for significant functional limitations resulting in diminished quality of life and impaired age appropriate activities of daily living. Multiple documents have been reviewed in combination with today's evaluation including imaging studies, outside provider notes, laboratory data, patient self-report questionnaires, and [place] prescription monitoring database entries. Significant social barriers exist to compliance resulting in limited prognosis. Practice Management Use of tobacco assessment performed and patient screened for future fall risk documentation of any fall with injury in past year Review of medications documented; Standardized depression screening: negative for symptoms and for adult impression and score two; [61476] Established outpatient, medically appropriate H&P, moderate level decision making, 30-39 minutes. A total of [12 ] minutes were spent caring for this [...] but may be subject to typographical or felt cutting machine operator errors. Verify all diagnoses, medications, dosages, and patient instructions with patient and/or the originator of this document. Telehealth Visit: Audio only. Patient called from their home. Provider located at the [facility] Clinical Services office. Patient consents to bill insurance for this visit. No exam completed. If at anytime it was felt patient need to be evaluated arrangements would be made. Care Team - KODI VALIENTE MD - Primary Care Health Reminders - Assess BMI satisfied 09/29/2023. - Assess Screening for Fall Risk satisfied 09/29/2023. - Assess Tobacco Use satisfied 09/29/2023. - Depression Screening satisfied 09/29/2023. - Follow up plan for Depression Screening satisfied 09/29/2023.
--- OUTSIDE RECORDS SUMMARY | 2024-12-30 09:01 | XMS_ITS ---
Author Organization [facility] Address [address] [place] [address] Phone Care Team Providers Care Level Vial Marker Name Role Phone ROCCO GUSMAN, KODI Primary Care Provider [phone] Problems Includes: Active, inactive, and resolved Problems All Visits Onset Date Resolved Date Provider Condition S tatus Chronic Obstructive Pulmonary Disease Unknown GIOVANNI WOODLP ADVERTISING SALES AGENT-FPA, BOAT MASTER-BC Active Last Documented On 3 2:26PM ; [facility] Essential Hypertension Unknown GIOVANNI Feliz KUL P ADVERTISING SALES AGENT-FPA, BOAT MASTER-BC Active Last Documented On 3 2:26PM ; [facility] Arthralgia Unknown GIOVANNI Feliz TATY ADVERTISING SALES AGENT-FPA, BOAT MASTER-BC Active Last Documented On 3 2:25PM ; [facility] Plan of Treatment Education and Decision Aids were provided during visit for: Lifestyle education Last Documented On 4 9:53AM ; [facility] Pill Count: N/A Last Documented On 4 9:54AM ; [facility] Lifestyle education Last Documented On 4 3:58PM ; [facility] Lifestyle education Last Documented On 3 3:15PM ; [facility] Assessments Includes: Assessments for all patient encounters Findings Encounter Date Lumbar radiculopathy PAIN MANAGEMENT FOL LOW UP with GIOVANNI POSEY ADVERTISING SALES AGENT-FPA, BOAT MASTER-BC 02/23/2024 Last Documented On 4 10:45AM ; [facility] Lumbar spondylosis PAIN MANAGEMENT FOLL OW UP with GIOVANNI G TATY ADVERTISING SALES AGENT-FPA, BOAT MASTER-BC 02/23/2024 Last Documented On 4 10:45AM ; [facility] Lumbar stenosis with neuroge ernestine claudication PAIN MANAGEMENT FOLLOW UP with GIOVANNI Feliz TATY ADVERTISING SALES AGENT-FPA, BOAT MASTER-BC 02/23/2024 Last Documented On 4 10:45AM ; [facility] Right trochanteric bursitis PAIN MANAGEM ENT FOLLOW UP with GIOVANNI Feliz TATY ADVERTISING SALES AGENT-FPA, BOAT MASTER-BC 02/23/2024 Last Documented On 4 10:45AM ; [facility] Vertebrogenic low back pain PAIN MANAGEM ENT FOLLOW UP with GIOVANNI Feliz TATY ADVERTISING SALES AGENT-FPA, BOAT MASTER-BC 02/23/2024 Last Documented On 4 10:45AM ; [facility] Lumbar radiculopathy TELEHEALTH with GIOVANNI Feliz Rupesh ULP ADVERTISING SALES AGENT-FPA, BOAT MASTER-BC 09/29/2023 Last Documented On 4 11:53AM ; [facility] Lumbar spondylosis TELEHEALTH with GIOVANNI Feliz KUL P ADVERTISING SALES AGENT-FPA, BOAT MASTER-BC 09/29/2023 Last Documented On 4 11:53AM ; [facility] Lumbar stenosis with neuroge ernestine claudication TELEHEALTH with GIOVANNI Feliz TATY ADVERTISING SALES AGENT-FPA, BOAT MASTER-BC 09/29/2023 Last Documented On 4 11:53AM ; [facility] Vertebrogenic low back pain TELEHEALTH w ith GIOVANNI Feliz TATY ADVERTISING SALES AGENT-FPA, BOAT MASTER-BC 09/29/2023 Last Documented On 4 11:53AM ; [facility] Lumbar radiculopathy PAIN MANAGEMENT NEW CONSULT with GIOVANNI Feliz TATY ADVERTISING SALES AGENT-FPA, BOAT MASTER-BC 08/04/2023 Last Documented On 3 4:19PM ; [facility] Lumbar spondylosis PAIN MANAGEMENT NEW CONSULT with GIOVANNI Feliz TATY ADVERTISING SALES AGENT-FPA, BOAT MASTER-BC 08/04/2023 Last Documented On 3 4:19PM ; [facility] Lumbar stenosis with neuroge ernestine claudication PAIN MANAGEMENT NEW CONSULT with GIOVANNI G TATY ADVERTISING SALES AGENT-FPA, BOAT MASTER-BC 08/04/2023 Last Documented On 3 4:19PM ; [facility] Vertebrogenic low back pain PAIN MANAGEM ENT NEW CONSULT with ANTONIO CHEN 08/04/2023 Last Documented On 3 4:19PM ; [facility] Instructions Includes: Instructions for all patient encounters Education and Decision Aids were provided during visit for: Lifestyle education Last Documented On 4 9:53AM ; [facility] Pill Count: N/A Last Documented On 4 9:54AM ; [facility] Lifestyle education Last Documented On 4 3:58PM ; [facility] Lifestyle education Last Documented On 3 3:15PM ; [facility] Medical Equipment - Implanted Devices Includes: Current and historical Devices No Medical Equipment Recorded Medications Includes: Current and historical Medications Current Medications (continue as prescribed) Acetaminophen 500 MG Oral Tablet 02/23/2024 Provider : Diagnosis: Two pills every 8 hours as needed. Last Documented On 4 10:33AM By GIOVANNI ALVAREZ ; [facility] Meloxicam 7.5 MG Oral Tablet 02/02/2024 Provider: ANTONIO CHEN Diagnosis: Spinal stenosis, lumbar region with neurogenic claudication TAKE ONE TABLET BY MOUTH HO LY WITH A MEAL Last Documented On 4 10:33AM By GIOVANNI ALVAREZ ; [facility] Calcium + Vitamin D3 600-10 MG-MCG Oral Tablet 023 Provider: Diagnosis: Last Documented On 3 3:13PM By GIOVANNI ALVAREZ ; [facility] AZO Urinary Pain Relief 95 MG Oral Tablet 08/04/2023 Provider: Diagnosis: As needed. Last Documented On 3 3:13PM By GIOVANNI ALVAREZ ; [facility] Felodipine ER 5 MG Oral Tabl et Extended Release 24 Hour 11/15/2022 Provider: KODI VALIENTE MD Diagnosis: Last Documented On 3 3:13PM By GIOVANNI ALVAREZ ; [facility] Past Medications on file Meloxicam 7.5 MG Oral Tablet 12/01/2023 - 02/02/2024 Provider: ANTONIO CHEN Diagnosis: Spinal stenosis, lumbar region with neurogenic claudication TAKE ONE TABLET BY MOUTH DAILY WITH A MEAL Last Documented On 4 10:08AM By GIOVANNI ALVAREZ ; [facility] Meloxicam 7.5 MG Oral Tablet 09/02/2023 - 12/01/2023 Provider: ANTONIO CHEN Diagnosis: Spinal stenosis, lumbar region with neurogenic claudication TAKE ONE TABLET BY MOUTH DAILY WITH A MEAL Last Documented On 4 9:48AM By GIOVANNI ALVAREZ ; [facility] Ibuprofen 200 MG Oral Tablet 08/04/2023 - 09/29/19 24 Provider: Diagnosis: As needed. Last Documented On 4 3:59PM By Monique CHERY ; [facility] Alive Multi-Vitamin Oral Liquid 08/04/2023 - 4 Provider: Diagnosis: Last Documented On 4 3:59PM By Monique CHERY ; [facility] Meloxicam 7.5 MG Oral Tablet 08/04/2023 - 09/02/2023 Provider: ANTONIO CHEN Diagnosis: Spinal stenosis, lumbar region with neurogenic claudication One tablet daily with a meal Last Documented On 3 6:20PM By GIOVANNI ALVAREZ ; [facility] Medications Administered Includes: Administered Medications in patient's chart No Administered Medications Recorded Vital Signs Includes: Vital Signs from 12/31/2023 through 12/30/2024 Vital Name 02/23/2024 10:13A Blood Pressure Sitting R 116/72 BP Cuff Size Regular Pulse Rate-Sitting (bpm) 66 Temp-Temporal 97 Height (in) 61 Weight (lb) 141 Body Mass Index 26.6 Body Surface Area 1.6 Pain Level 5 Oxygen Saturation (%) 97 Last Documented: On 02/23/2024 10:14A M ; [facility] Results Includes: Results from 12/31/2023 through 12/30/2024 No Results Recorded For Specified Dates History of Present Illness History of Present Illness not supported for this document type No History of Present Illness Recorded Social History Description Last Updated Tobacco non-user 08/04/2023 Last Documented On 3 4:19PM ; [facility] Difficulty walking 08/04/2023 Last Documented On 3 4:19PM ; [facility] No consumption of alcohol 08/04/2023 Last Documented On 3 4:19PM ; [facility] Not using drugs 08/04/2023 Last Documented On 3 4:19PM ; [facility] Smoking Status Unknown Procedures and Surgical History Includes: Procedures from 12/31/2023 through 12/30/2024 Procedures Code Diagnosis Performing Provider Service Location Service Date KENALOG INJECTION (KENALOG 10MG) J3301 Trochanteric bursitis, right hip GIOVANNI G TATY ADVERTISING SALES AGENT-FPA, BOAT MASTER-BC [facility] 02/23/2024 Last Documented On 4 2:25PM ; [facility] ARTHROCENTEISI/MAJOR JOINT/BURSA (RIGHT) Trochanteric bursitis, right hip GIOVANNI G TATY ADVERTISING SALES AGENT-FPA, BOAT MASTER-BC [facility] 02/23/2024 Last Documented On 4 2:25PM ; [facility] Surgical History Last Updated No Pacemaker 08/04/2023 Last Documented On 3 4:19PM ; [facility] Medical History Includes: Medical History in patient's chart Description Last Updated Denies a fear of falling. 08/04/2023 Last Documented On 3 4:19PM ; [facility] Has had no fall in the last 12 months. 1 10/04/2022 Last Documented On 3 4:19PM ; [facility] CT/MRI Lower body Jun 29, 2023 3 Last Documented On 3 4:19PM ; [facility] Currently wearing eyeglasses 08/04/2023 Last Documented On 3 4:19PM ; [facility] Moderate to severe pain 08/04/2023 Last Documented On 3 4:19PM ; [facility] No Pain Pump 08/04/2023 Last Documented On 3 4:19PM ; [facility] No Spinal cord stimulator 08/04/2023 Last Documented On 3 4:19PM ; [facility] Other method: 08/04/2023 Last Documented On 3 4:19PM ; [facility] Please list all illnesses/co nditions you have been diagnosed with: Blood pressure mild copd 08/04/2023 Last Documented On 3 4:19PM ; [facility] Please list all surgeries: B roken ankle Sep 1999 , 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 Subural Hematoma 06 29 2016 Bladder repair & hysterectomy 12 20 201708/04/2023 Last Documented On 3 4:19PM ; [facility] X-rays Lower body Jun 16 2023 08/04/2023 Last Documented On 3 4:19PM ; [facility] Family History Includes: Family History in patient's chart Description Last Updated Maternal history of Arthritis 08/04/2023 Last Documented On 3 4:19PM ; [facility] Paternal history of family history of is chemic heart disease 08/04/2023 Last Documented On 3 4:19PM ; [facility] Review of Systems Review of Systems not supported for this document type No Review of Systems Recorded Mental Status No Mental Status Recorded Functional Status No Functional Status Recorded Physical Exam Physical Exam not supported for this document type No Physical Exam Recorded Allergies Includes: Active, inactive, and resolved Allergies Substance Type Reaction Onset Date Resolved Date Statu s Adhesive Tape Allergy 08/04/2023 Activ e Last Documented On 4 10:12AM ; [facility] Encounters Includes: Encounters from 12/31/2023 through 12/30/2024 Encounter Provider Location Date Check-In Time Check-Out Time Diagnosis * PHONE CALL ANTONIO CHEN 02/23/20 24 3:31PM 11:59PM PAIN MANAGEMENT FOLLOW UP ANTONIO CHEN [facility] 02/23/20 24 10:08AM 10:48AM Lumbar Spondylosis,Lum bar Radiculopathy,S seymour Stenosis Lumbar with Neurogenic Claudication,Do rsopathy Low Back Pain Vertebrogenic,B ursitis Trochanteric Right Insurance Includes: Active Insurance Policies Plan Name Member ID Group # Subscriber Relationship Effect sophy Dates 1 - MEDICARE PART A CLAIMS/NGS [id number] FAUSTO Vazquez 2 - [facility] [id number] FAUSTO Vazquez Clinical Notes Includes: Signed Clinical Notes starting from 09/26/2022 * Progress note Date Encounter Last Documented by 02/23/2024 * PHONE CALL Last documented on 02/23/2024; 3:49 PM, GIOVANNI Trini POSEY ADVERTISING SALES AGENT-FPA, BOAT MASTER-BC; [facility] Active Problems & Conditions - Arthralgia - Chronic Obstructive Pulmonary Disease - Essential Hypertension Chief Complaint Phone Call - Chief Concern: reason for call:Pt was planning on giving blood tomorrow. She had injection in the office today. would she still be able to give blood. pt phone # for return call: date/initials:02/23/24 CB. Current Medication - Acetaminophen 500 MG Oral Tablet Two pills every 8 hours as needed., 0 days, 0 refills - AZO Urinary [...] MOUTH DAILY WITH A MEAL, 30 days, 0 refills Past Medical/Surgical History Reported: [...] History Paternal: Ischemic heart disease Maternal: Arthritis Plan StartCited - Other PHY ORDER/COMMENT as long as she is feeling fine it should not be a problem EndCited Care Team - KODI VALIENTE MD - Primary Care Health Reminders - Assess Tobacco Use satisfied 02/23/2024. * Progress note Date Encounter Last Documented by 02/23/2024 PAIN MANAGEMENT FOLLOW UP Last d ocumented on 02/23/2024; 10:45 AM, GIOVANNI POSEY APRN-FPA, BOAT MASTER-BC; [facility] Active Problems & Conditions - Arthralgia - Chronic Obstructive Pulmonary Disease - Essential Hypertension Chief Complaint The Chief Complaint is: 6 month follow up for pain. History of Present Illness PHQ-9 Score: 0 Date: 02/23/2024 BPI Score: Date: Oswestry Score: 34% Date: 02/23/2024 SOAPP-R Score: 2 Date:02/23/2024 Pain Location: Lumbar Quality: Dull , sore, weak. tight. Radiation: BLT legs to above the knees. Severity: Timing: constant. Associated Sx: Weakness. Aggravating Factors:standing at the counter for to long, riding in a car, getting up and down, Alleviating Factors:hot shower, Past Tx:physical therapy low back 08/14/23- 09/29/23 12 visits FAUSTO BENDER is an 83 year old [...] radiating in both thighs - No vertigo - Last drug screen appropriate 08/04/2023 Discussion: Worsening R hip pain, especially when she first stands/first few steps. Low back pain also but the R hip is most bothersome. No radicular symptoms. Still doing her home therapy. Still taking her Meloxicam daily. Tylenol doesn't seem to help w/ the hip pain very much. Provocative maneuvers of R hip and R SI joint negative. Tender over the R trochanteric bursa. Discussed bursa injection today. She would like to proceed. PRIOR VISIT: FU after PT for low back pain [...] normal liver studies 09/24/22 Current Medication - Acetaminophen 500 MG Oral Tablet Two pills every 8 hours as needed., 0 days, 0 refills - AZO Urinary [...] MOUTH DAILY WITH A MEAL, 30 days, 0 refills Past Medical/Surgical History Reported: [...] than noted. Physical Findings - Vitals taken 02/23/2024 10:13 am BP-Sitting R 116/72 mmHg BP Cuff Size Regular Pulse Rate-Sitting 66 bpm Temp-Temporal 97 F Height 61 in Weight 141 lbs Body Mass Index 26.6 kg/m2 Body Surface Area 1.6 m2 Pain Level 5 Pain Level Note Right hip and lumbar spine. Oxygen Saturation 97 % Musculoskeletal System: General/bilateral: Musculoskeletal Scales: Value Lumbar oswestry score 34 Psychiatric: Psychiatric: Value PHQ9 score: 0 Tests Educational Testing: Questionnaires PHQ-9: Value SOAPP-R: total score 2 Assessment - [M70.61 - Trochanteric bursitis, right hip] Right trochanteric bursitis - [M47.896 - Other spondylosis, lumbar region] Lumbar spondylosis - [M54.51 - Vertebrogenic low back pain] Vertebrogenic low back pain - [M48.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, lumbar region with neurogenic claudication] Lumbar stenosis with neurogenic claudication - [M54.16 - Radiculopathy, lumbar region] Lumbar radiculopathy Therapy - Reviewed & agreed to staff entries. - Encouragement to exercise. - Clinical summary provided to patient. - Plan of care reviewed and agreed to by the patient. Counseling/Education - Lifestyle education - Pill Count: N/A Discussed Continue current medications. FU telehealth 2 1/2 weeks. Consider lumbar epidural. In the future we [...] notes, laboratory data, patient self-report questionnaires, and [place] prescription monitoring database entries. Significant social barriers exist to compliance resulting in limited prognosis. Practice Management Use of tobacco assessment performed and patient screened for future fall risk documentation of any fall with injury in past year Review of medications documented; Standardized depression screening: negative for symptoms and for adult impression and score 0; [31005] Established outpatient, medically appropriate H&P, moderate level decision making, 30+ minutes. A total of [22 ] minutes were spent caring for this [...] but may be subject to typographical or die attacher errors. Verify all diagnoses, medications, dosages, and patient instructions with patient and/or the originator of this document. Care Team - KODI VALIENTE MD - Primary Care Health Reminders - Assess Blood Pressure satisfied 02/23/2024. - Assess BMI satisfied 02/23/2024. - Assess Screening for Fall Risk satisfied 02/23/2024. - Assess Tobacco Use satisfied 02/23/2024. - Depression Screening satisfied 02/23/2024. - Follow up plan for Depression Screening satisfied 02/23/2024. User Defined 1 Large Joint Injection --Right HipTrochanteric bursa-The procedure was described in detail to the patient. Risks explained included possible infection, bleeding, or allergic reaction to medication. The patient has also had an explanation of the side effects of corticosteroid. Allergies confirmed. The patient has had an opportunity to have all questions answered both on the day of initial consultation and again today. The patient wishes to proceed and has signed a procedure specific consent form. DESCRIPTION OF PROCEDURE: The patient assumed Left lateral decubitus position with upper leg flexed at 45 degrees. Area of tenderness located by palpation over greater trochanter and marked with skin marker. Area cleansed with Betasept solution using aseptic technique. A 27-gauge, 1.5 inch standard needle was advanced until periosteum was encountered and slightly withdrawn. After negative aspiration for blood, a 5ml solution containing 40mg Triamcinolone mixed with 0.5% Bupivicaine was injected in a box like distribution. Sterile bandage was applied. The patient tolerated the procedure well. No immediate complications.
--- OUTSIDE RECORDS SUMMARY | 2024-12-30 09:01 | XMS_ITS ---
Author Organization Unknown Address [address] [place] [phone] Phone Care Team Providers Care Facility Service Associate Name Role Phone CHAYITO MACHUCA Attending Unavailable ROCCO MARIEE Primary Unavailable Immunization Immunization Date Status Additional Notes Code Code System pneumococcal polysaccharide PPV23 05/18/2014 Completed 33 CVX pneumococcal polysaccharide PPV23 06/07/2014 Completed 33 CVX zoster live 06/26/2014 Completed 121 CVX Novel [id number] 06/07/2015 Completed 127 CVX Pneumococcal conjugate PCV [...] Date Code Code System No Cognitive Impairments 11946357 SN[facility] MED-CT Results US ECHO W/ COLOR - Completed : 09/21/2024 10:33 LOINC: See Scanned Image Attachment for Report Dictated By: Trans Initials: BG Trans Date: 09/26/24 15:31 <<REPDIST>> Social History Type Status Start Date End Date Code Code Syst em Smoking History Never smoker (Never Smoked) 860952933 SNOMED CT Sex Female Assessment You had [...] Date Status Code Code System HYPERTENSION active 78871791 SNOMED- CT CLOSED FRACTURE OF BONE active 935633 000 SNOMED-CT Allergies and Adverse Reactions Allergy Substance Reaction Severity Start Date Concern Status Co de Code System ADHESIVE Active No Known Allergies Active 490210103 SNO MED-CT Plan of Treatment Emil Established Visit 11/08/2024 US Echo With Color (78421) 09/21/2024 Emil Established Visit 05/09/2025 Encounters Encounter Diagnosis Start Date Code Code Sys tem Mitral valve regurgitation 09/21/2024 56913019 S NOMED-CT Personal Care Team Section Performer Name Performer Role Active Date Inactive KODI Mead PCP - Primary care physician 2024-05-30 Imaging Narrative Notes [facility] 09/26/2024 15:31 [place] [id number] RADIOLOGY REPORT Patient Number: [id number] Patient Name: NAPOLEON MACIAS Type: O/P MR Number: [id number] : 1940 Age: 84 Sex: F Room #: Admit Date: 09/21/24 Discharge Date 09/21/24 Ordering Physician: CHAYITO MACHUCA Family Physician: ROCCO BARRERA Second Physician: X-Ray Number : [id number] US ECHO W/ COLOR [id number] COMPLETE:09/21/24 10:33 [facility] [id number] (REASON-ECHO COMPLTE: MITRAL VALVE REGURGITATION See Scanned Image Attachment for Report Dictated By: Elio Initials: BG Ballard Date: 09/26/24 15:31 <<REPDIST>>
--- OUTSIDE RECORDS SUMMARY | 2024-12-30 09:01 | XMS_ITS ---
Author Organization Unknown Address [address] [place] [phone] Phone Care Team Providers Care Fire Prevention [employer] Captain Name Role Phone SOPHIE HOWIE Attending Unavailable ROCCO MARIEE Primary Unavailable Immunization Immunization Date Status Additional Notes Code Code System pneumococcal polysaccharide PPV23 05/18/2014 Completed 33 CVX pneumococcal polysaccharide PPV23 06/07/2014 Completed 33 CVX zoster live 06/26/2014 Completed 121 CVX Novel [id number] 06/07/2015 Completed 127 CVX Pneumococcal conjugate PCV [...] Date Code Code System No Cognitive Impairments 97672699 SNO MED-CT Social History Type Status Start Date End Date Code Code Syst em Smoking History Never smoker (Never Smoked) 385917524 SNOMED CT Sex Female Vital Signs Vital Sign Value Unit Dennis Value Dennis Unit Date/Time Recent/Initial? Code Code System Body Mass Index 26.45 kg/m2 11/08/2024 08:56 Initial 02066 -5 LOINC Systolic Blood Pressure 141 mm[Hg] 11/08/2024 08:55 Initial 8480- 6 LOINC Diastolic Blood Pressure 82 mm[Hg] 11/08/2024 08:55 Initial 8462- 4 LOINC Body Surface Area 1.65 m2 11/08/2024 08:56 Initial 3140- 1 LOINC Height 154.940 0 cm 61.00 in 11/08/2024 08:56 Initial 8302- 2 LOINC O2 Saturation 97 % 2024 08:55 Initial 51381 -5 LOINC Pulse 79.0 /min 11/08/2024 08:55 Initial 8867- 4 LOINC Respiration 18 /min 11/09/19 08:55 Initial 9279- 1 LOINC Weight 63.50 kg 140.00 lbs 11/08/2024 08:56 Initial 79868 -7 LOINC Assessment You had the following problems:HYPERTENSIONCLOSED FRACTURE OF BONE Hospital Discharge Instructions Should you have any questions prior to discharge, please contact a member of your healthcare team. If you have left the hospital and have any questions, please contact your primary care physician. Reason For Referral No Data Found Problems Problem Start Date Resolved Date Status Code Code System HYPERTENSION active 16981149 SNOMED- CT CLOSED FRACTURE OF BONE active 515580 000 SNOMED-CT Allergies and Adverse Reactions Allergy Substance Reaction Severity Start Date Concern Status Co de Code System ADHESIVE Active No Known Allergies Active 440298268 SNO MED-CT Plan of Treatment Sophie Established Visit 11/08/2024 US Echo With Color (12967) 09/21/2024 Sophie Established Visit 05/09/2025 Encounters Encounter Diagnosis Start Date Code Code Sys tem Raised antibody titer 11/08/2024 SNOMED -CT Personal Care Team Section Performer Name Performer Role Active Date Inactive KODI Mead PCP - Primary care physician 2024-05-30
--- OUTSIDE RECORDS SUMMARY | 2024-12-30 09:01 | XMS_ITS | Clinical Summary ---
Author Organization [facility] Address [address] [place] [address] Phone Care Team Providers Care Crew Leader Gluing Name Role Phone ROCCO GUSMAN, [facility] Primary Care Provider [phone] Reason for Visit and Chief Complaint The Chief Complaint is: 6 month follow up for pain Problems Includes: Problems addressed during this encounter and other active Problems All Visits Onset Date Resolved Date Provider Condition S tatus Chronic Obstructive Pulmonary Disease Unknown GIOVANNI Feliz TATY DUCT LAYER HELPER-FPA, BOOM SUPERVISOR-BC Active Last Documented On 3 2:26PM ; [facility] Essential Hypertension Unknown GIOVANNI G KUL P DUCT LAYER HELPER-FPA, BOOM SUPERVISOR-BC Active Last Documented On 3 2:26PM ; [facility] Arthralgia Unknown GIOVANNI G TATY DUCT LAYER HELPER-FPA, BOOM SUPERVISOR-BC Active Last Documented On 3 2:25PM ; [facility] Plan of Treatment Patient [...] notes, laboratory data, patient self-report questionnaires, and [place] prescription monitoring database entries. Significant social barriers exist to compliance resulting in limited prognosis. - Last Documented On 02/23/2024 10:45AM ; [facility] Education and Decision Aids were provided during visit for: Lifestyle education Last Documented On 9:53AM ; [facility] Pill Count: N/A Last Documented On 4 9:54AM ; [facility] Assessments Includes: Assessments from this encounter Findings - [M70.61 - Trochanteric bursitis, right hip] Right trochanteric bursitis - Last Documented On 02/23/2024 10:45AM ; [facility] - [M47.896 - Other spondylosis, lumbar region] Lumbar spondylosis - Last Documented On 02/23/2024 10:45AM ; [facility] - [M54.51 - Vertebrogenic low back pain] Vertebrogenic low back pain - Last Documented On 02/23/2024 10:45AM ; [facility] - [M48.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, lumbar region with neurogenic claudication] Lumbar stenosis with neurogenic claudication - Last Documented On 02/23/2024 10:45AM ; [facility] - [M54.16 - Radiculopathy, lumbar region] Lumbar radiculopathy - Last Documented On 02/23/2024 10:45AM ; [facility] Instructions Includes: Instructions from this encounter Education and Decision Aids were provided during visit for: Lifestyle education Last Documented On 4 9:53AM ; [facility] Pill Count: N/A Last Documented On 4 9:54AM ; [facility] Medical Equipment - Implanted Devices Includes: Current Devices No Medical Equipment Recorded Medications Includes: Medications discussed during this encounter and other current Medications Current Medications (continue as prescribed) Acetaminophen 500 MG Oral Tablet 02/23/2024 Provider : Diagnosis: Two pills every 8 hours as needed. Last Documented On 4 10:33AM By GIOVANNI VIEIRA-BC ; [facility] Meloxicam 7.5 MG Oral Tablet 02/02/2024 Provider: GIOVANNI POSEY APRN-KASSIDYA, BOOM SUPERVISOR-BC Diagnosis: Spinal stenosis, lumbar region with neurogenic claudication TAKE ONE TABLET BY MOUTH HO LY WITH A MEAL Last Documented On 4 10:33AM By GIOVANNI VIEIRA-BC ; [facility] Calcium + Vitamin D3 600-10 MG-MCG Oral Tablet 023 Provider: Diagnosis: Last Documented On 3 3:13PM By GIOVANNI VIEIRA-BC ; [facility] AZO Urinary Pain Relief 95 MG Oral Tablet 08/04/2023 Provider: Diagnosis: As needed. Last Documented On 3 3:13PM By GIOVANNI ALVAREZ ; [facility] Felodipine ER 5 MG Oral Tabl et Extended Release 24 Hour 11/15/2022 Provider: KODI VALIENTE MD Diagnosis: Last Documented On 3 3:13PM By GIOVANNI ALVAREZ ; [facility] Medications Administered Includes: Administered Medications from this encounter No Administered Medications Recorded Vital Signs Includes: Vital Signs from this encounter Vital Name 02/23/2024 10:13A Blood Pressure Sitting R 116/72 BP Cuff Size Regular Pulse Rate-Sitting (bpm) 66 Temp-Temporal 97 Height (in) 61 Weight (lb) 141 Body Mass Index 26.6 Body Surface Area 1.6 Pain Level 5 Oxygen Saturation (%) 97 Last Documented: On 02/23/2024 10:14A M ; [facility] Results Includes: Results discussed during this encounter No Results Recorded For Specified Dates History of Present Illness Includes: History of Present Illness from this encounter HPI PHQ-9 Score: 0 Date: 02/23/2024 BPI Score: [...] Tobacco non-user 08/04/2023 Last Documented On 4 9:53AM ; [facility] Difficulty walking 08/04/2023 Last Documented On 4 9:53AM ; [facility] No consumption of alcohol 08/04/2023 Last Documented On 4 9:53AM ; [facility] Not using drugs 08/04/2023 Last Documented On 4 9:53AM ; [facility] Smoking Status Unknown Procedures and Surgical History Includes: Procedures from this encounter Procedures Code Diagnosis Performing Provider Service Location Service Date ARTHROCENTEISI/MA BELKYS JOINT/BURSA (RIGHT) Trochanteric bursitis, right hip GIOVANNI G TATY DUCT LAYER HELPER-FPA, BOOM SUPERVISOR-BC [facility] 02/23/2024 Last Documented On 4 2:25PM ; [facility] KENALOG INJECTION (KENALOG 10MG) J3301 Trochanteric bursitis, right hip GIOVANNI G TATY DUCT LAYER HELPER-FPA, BOOM SUPERVISOR-BC [facility] 02/23/2024 Last Documented On 4 2:25PM ; [facility] plan of care reviewed and agreed to Last Documented On 4 9:53AM ; [facility] plan of care reviewed and agreed to by t he patient Last Documented On 4 9:53AM ; [facility] use of tobacco assessment performed 1000F Last Documented On 4 9:53AM ; [facility] patient screened for future fall risk: documentation of any fall with injury in past year 1100F Last Documented On 4 9:53AM ; [facility] standardized depression screening: negative for symptoms 3351F Last Documented On 4 9:53AM ; [facility] review of medications documented 1160F Last Documented On 4 9:53AM ; [facility] screening for adult depression: impressi on and score 0 Last Documented On 4 10:12AM ; [facility] encouragement to exercise Last Documented On 4 9:53AM ; [facility] Large Joint Injection --Righ t HipTrochanteric bursa-The procedure was described in detail [...] has signed a procedure specific consent form. ~ ~DESCRIPTION OF PROCEDURE: The patient assumed Left lateral [...] patient tolerated the procedure well. No immediate complications Last Documented On 4 10:32AM ; [facility] Reviewed & agreed to staff entries. Last Documented On 4 9:53AM ; [facility] Clinical summary provided to patient Last Documented On 4 9:53AM ; [facility] SOAPP-R: total score 2 Last Documented On 4 10:12AM ; [facility] Surgical History Last Updated No Pacemaker 08/04/2023 Last Documented On 4 9:53AM ; [facility] Medical History Includes: Medical History addressed during this encounter Description Last Updated Denies a fear of falling. 08/04/2023 Last Documented On 4 9:53AM ; [facility] Has had no fall in the last 12 months. 1 10/04/2022 Last Documented On 4 9:53AM ; [facility] CT/MRI Lower body Jun 29, 2023 3 Last Documented On 4 9:53AM ; [facility] Currently wearing eyeglasses 08/04/2023 Last Documented On 4 9:53AM ; [facility] Moderate to severe pain 08/04/2023 Last Documented On 4 9:53AM ; [facility] No Pain Pump 08/04/2023 Last Documented On 4 9:53AM ; [facility] No Spinal cord stimulator 08/04/2023 Last Documented On 4 9:53AM ; [facility] Other method: 08/04/2023 Last Documented On 4 9:53AM ; [facility] Please list all illnesses/co nditions you have been diagnosed with: Blood pressure mild copd 08/04/2023 Last Documented On 4 9:53AM ; [facility] Please list all surgeries: B roken ankle Sep 1999 , 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 Subural Hematoma 06 29 2016 Bladder repair & hysterectomy 12 20 201708/04/2023 Last Documented On 4 9:53AM ; [facility] X-rays Lower body Jun 16 2023 08/04/2023 Last Documented On 4 9:53AM ; [facility] Family History Includes: Family History addressed during this encounter Description Last Updated Maternal history of Arthritis 08/04/2023 Last Documented On 4 9:53AM ; [facility] Paternal history of family history of is chemic heart disease 08/04/2023 Last Documented On 4 9:53AM ; [facility] Review of Systems Includes: Review of Systems [...] e Last Documented On 4 10:12AM ; [facility] Encounters Encounter Provider Location Date Check-In Time Check-Out Time Diagnosis PAIN MANAGEMENT FOLLOW UP ANTONIO CHEN [facility] 02/23/20 24 10:08AM 10:48AM Lumbar Spondylosis,Lum bar Radiculopathy,S seymour Stenosis Lumbar with Neurogenic Claudication,Do rsopathy Low Back Pain Vertebrogenic,B ursitis Trochanteric Right Insurance Includes: Active Insurance Policies Plan Name Member ID Group # Subscriber Relationship Effect sophy Dates 1 - MEDICARE PART A CLAIMS/NGS [id number] FAUSTO Vazquez 2 - [facility] [id number] FAUSTO BENDER Self Clinical Notes Includes: Clinical Notes from this encounter * Progress note Date Encounter Last Documented by 02/23/2024 PAIN MANAGEMENT FOLLOW UP Last d ocumented on 02/23/2024; 10:45 AM, ANTONIO CHEN; [facility] Active Problems & Conditions [...] Pill Count: N/A Discussed Continue current medications. telehealth 2 1/2 weeks. Consider lumbar epidural. [...] notes, laboratory data, patient self-report questionnaires, and [place] prescription monitoring database entries. Significant social barriers exist to compliance resulting in limited prognosis. Practice Management Use of tobacco assessment performed and patient screened for future fall risk documentation of any fall with injury in past year Review of medications documented; Standardized depression screening: negative for symptoms and for adult impression and score 0; [44222] Established outpatient, medically appropriate H&P, moderate level [...] but may be subject to typographical or director of hotel errors. Verify all diagnoses, medications, dosages, and [...]
--- OUTSIDE RECORDS SUMMARY | 2024-12-30 09:01 | XMS_ITS ---
Author Organization Unknown Address [address] [place] [phone] Phone Care Team Providers Care Vp Ad Sales West Name Role Phone SOPHIE DENISE Attending Unavailable ROCCO MARIEE Primary Unavailable Immunization Immunization Date Status Additional Notes Code Code System pneumococcal polysaccharide PPV23 05/18/2014 Completed 33 CVX pneumococcal polysaccharide PPV23 06/07/2014 Completed 33 CVX zoster live 06/26/2014 Completed 121 CVX Novel [id number] 06/07/2015 Completed 127 CVX Pneumococcal conjugate PCV [...] Date Code Code System No Cognitive Impairments 62851441 [facility] MED-CT Results URINALYSIS DIPSTICK AUTO TASHA D - Collect Date/Time: 05/30/2024 14:34 [facility] ID: [id number] [address] [place], [place], [phone] LOINC: 55250-3 Test Value Unit Reference Range Code Code System Flag UR SOURCE CLEAN CATCH COLOR YELLOW NORMAL: YELLOW 5778-6 LOINC CLARITY CLOUDY NORMAL: CLEAR 50521-7 LOINC SPEC GRAVITY 1.015 NORMAL: 1.000-1.030 5811-5 LOINC PH 7.0 NORMAL: 5.0 - 6.5 5803-2 LOINC LEUK EST 1+ NORMAL: NEGATIVE 5799-2 LOINC A NITRATE NEGATIVE NORMAL: NEGATIVE PROTEIN NEGATIVE NORMAL: NEGATIVE 5804-0 LOINC GLUCOSE NEGATIVE NORMAL: NEGATIVE 77138-5 LOINC KETONES NEGATIVE NORMAL: NEGATIVE 89410-8 LOINC UROBILINOGEN 0.2 NORMAL: NEGATIVE 5818-0 LOINC BILIRUBIN NEGATIVE NORMAL: NEGATIVE 91427-6 LOINC BLOOD NEGATIVE NORMAL: NEGATIVE 65016-2 LOINC COMPREHENSIVE METABOLIC PANE L - Collect Date/Time: 05/30/2024 14:31 [facility] ID: [id number] [address] [place], [place], [phone] LOINC: 02947-4 Test Value Unit Reference Range Code Code System Flag FASTING NO BUN 28 mg/dL L=7 H=20 3094-0 LOINC H CREATININE 0.90 mg/dL L=0.52 H=1.04 2160-0 LOINC GLUCOSE 91 mg/dL L=74 H=106 2345-7 LOINC SODIUM 139 mmol/L L=132 H=144 2951-2 LOINC POTASSIUM 4.3 mmol/L L=3.5 H=5.1 2823-3 LOINC CHLORIDE 103 mmol/L L=98 H=107 2075-0 LOINC CO2 26.0 mmol/L L=22.0 H=30.0 2028-9 LOINC ANION GAP 14 L=10 H=20 78952-4 LOINC OSMOLALITY 293 mOs/kG L=280 H=296 35544-9 LOINC BUN/CREAT 31.1 3097-3 LOINC CALCIUM 9.3 mg/dL L=8.3 H=10.5 49490-2 LOINC AST 32 U/L L=15 H=46 1920-8 LOINC ALT 18 U/L L=9 H=72 1742-6 LOINC ALKALINE PHOS 73 U/L L=38 H=126 6768-6 LOINC TOTAL BILI 0.4 mg/dL L=0.2 H=1.3 1975-2 LOINC ALBUMIN 4.2 G/dL L=3.5 H=5.0 1751-7 LOINC TOTAL PROTEIN 7.8 g/L L=6.3 H=8.2 2885-2 LOINC A/G RATIO 1.2 59665-7 LOINC AGE 84 95137-9 LOINC eGFR NON-AFR 64 ml/min eGFR AFR AMER 77 ml/min 25 HYDROXY VITAMIN D - Colle ct Date/Time: 05/30/2024 14:31 [facility] ID: [id number] [address] [place] [address], [phone] LOINC: Test Value Unit Reference Range Code Code System Flag VITAMIN D 75.3 ng/ml L=30.0 H=100 67253-9 LOINC HEP B SURFACE AG - Collect D ate/Time: 05/30/2024 14:31 [facility] ID: [id number] [address] [place] [address], [phone] LOINC: 5196-1 Test Value Unit Reference Range Code Code System Flag HBsAg Screen Negative Negative 5196-1 LOINC SEND TO IFC? NO HEPATITIS C AB (HCV Ab) - Co llect Date/Time: 05/30/2024 14:31 [facility] ID: [id number] [address] [place] [address], [phone] LOINC: 99163-0 Test Value Unit Reference Range Code Code System Flag Hep C Virus Ab Non Reactive Non Reactive 44762-6 LOINC SEND TO IFC? NO TWAN BY IFA REFLEX 11 BIOMARK ER MULTIPLE - Collect Date/Time: 05/30/2024 14:31 [facility] ID: [id number] [address] [place], [place], [phone] LOINC: 35198-4 Test Value Unit Reference Range Code Code System Flag TWAN by IFA RfxTiter/Pattern Positive 77563-5 LOINC A Homogeneous Pattern TNP 37297-1 LOINC Nucleolar Pattern TNP 52898-1 LOINC Speckled Pattern 1:320 32386-6 LOINC H Centromere Pattern TNP 5077-3 LOINC Spindle Apparatus Pattern TNP 66580-6 LOINC Nuclear Membrane Pattern TNP 35644-3 LOINC Midbody Pattern TNP 15268-3 LOINC Nuclear Dot Pattern TNP 73001-1 LOINC PCNA Pattern TNP 37607-9 LOINC Centriole Pattern TNP 63448-4 LOINC Note: COMMENT Anti-DNA (DS) Ab Qn <1 0-9 5130-0 LOINC LINER HELPER Antibodies 1.3 0.0-0.9 54308-3 LOINC H Patel Antibodies <0.2 0.0-0.9 21217-7 LOINC Patel/LINER HELPER Antibodies 7.8 0.0-0.9 87153-4 LOINC H Antiscleroderma-70Anti bodies <0.2 0.0-0.9 87349-4 LOINC Sjogren's Anti-SS-A <0.2 0.0-0.9 79064-0 LOINC Sjogren's Anti-SS-B <0.2 0.0-0.9 60904-8 LOINC Antichromatin Antibodies 1.9 0.0-0.9 34921-0 LOINC H Antiribosomal PAntibodies <0.2 0.0-0.9 22942-8 LOINC Anti-Ana-1 <0.2 0.0-0.9 80291-9 LOINC Anti-Centromere BAntibodies <0.2 0.0-0.9 50467-8 LOINC See below: COMMENT TWAN REFLEX CHARGE? YES IRON PANEL - Collect Date/Ti me: 05/30/2024 14:31 [facility] ID: [id number] [address] [place], [place], [phone] LOINC: Test Value Unit Reference Range Code Code System Flag IRON 66 ug/dL L=37 H=170 2498-4 LOINC TIBC 397 ug/dL L=265 H=497 2500-7 LOINC %SATURATION 17 % L=13 H=45 2708-6 LOINC FERRITIN - Collect Date/Time : 05/30/2024 14:31 [facility] ID: [id number] [address] [place] [address], [id number] LOINC: 2276-4 Test Value Unit Reference Range Code Code System Flag FERRITIN 10.9 ng/mL L=11.1 H=264 2276-4 LOINC L VITAMIN B-12 - Collect Date/ Time: 05/30/2024 14:31 [facility] ID: [id number] [address] [place] [address], [phone] LOINC: 2132-9 Test Value Unit Reference Range Code Code System Flag VITAMIN B12 949 pq/mL L=239 H=931 H METHYLMALONIC ACID - Collect Date/Time: 05/30/2024 14:31 [facility] ID: [id number] [address] [place] [address], [phone] LOINC: 78239-2 Test Value Unit Reference Range Code Code System Flag Methylmalonic Acid, Serum 211 0-378 39017-7 LOINC CBC W/ DIFF - Collect Date/T tam: 05/30/2024 14:31 [facility] ID: [id number] [address] [place] [address], [id number] LOINC: 54007-7 Test Value Unit Reference Range Code Code System Flag WBC 6.8 10^3uL L=4.8 H=10.8 RBC 4.42 10^6uL L=4.20 H=5.40 HEMOGLOBIN 11.9 g/dL L=12.0 H=16.0 718-7 LOINC L HEMATOCRIT 38.6 VOL% L=37.0 H=47.0 4544-3 LOINC MCV 87.3 fL L=81.0 H=99.0 MCH 26.9 pg L=27.0 H=32.0 L MCHC 30.8 g/dL L=32.0 H=36.0 L PLATELETS 257 10^3uL L=100 H=400 66839-9 LOINC RDW 17.4 % L=11.7 H=15.5 H %GRAN 64.7 % L=40.0 H=70.0 54936-6 LOINC %LYMPH 24.9 % L=20.0 H=45.0 736-9 LOINC %MONO 7.9 % L=2.0 H=10.0 19300-6 LOINC %EOS 1.8 % L=0.0 H=6.0 713-8 LOINC %BASO 0.6 % L=0.0 H=3.0 706-2 LOINC #NEUT 4.4 10^3uL L=1.9 H=7.6 56712-8 LOINC #LYMPH 1.7 10^3uL L=0.9 H=4.9 05084-6 LOINC #MONO 0.5 10^3uL L=0.1 H=0.9 02774-7 LOINC #EOS 0.1 10^3uL L=0.0 H=0.6 712-0 LOINC #BASO 0.04 10^3uL L=0.00 H=0.10 10038-7 LOINC #IM GRANS 0.0 10^3uL L=0.0 H=7.0 53887-5 LOINC %IM GRANS 0.1 % L=0.0 H=5.0 19085-8 LOINC %NRB 0.0 L=0.0 H=0.2 97109-8 LOINC #NRB 0.000 L=0.000 H=0.012 51725-9 LOINC MANUAL DIFF NOT INDICATED RBC MORPH NOT INDICATED FOLIC ACID (SERUM) - Collect Date/Time: 05/30/2024 14:31 [facility] ID: [id number] [address] [place], [place], [phone] LOINC: 2284-8 Test Value Unit Reference Range Code Code System Flag FOLATE > 20.0 ng/mL L=2.7 H=20.0 2284-8 LOINC Social History Type Status Start Date End Date Code Code Syst em Smoking History Never smoker (Never Smoked) 841827992 SNOMED CT Sex Female Vital Signs Vital Sign Value Unit Velpen Value Velpen Unit Date/Time Recent/Initial? Code Code System Body Mass Index 25.24 kg/m2 05/30/2024 13:16 Initial 92846 -5 LOINC Systolic Blood Pressure 158 mm[Hg] 05/30/2024 13:15 Initial 8480- 6 LOINC Diastolic Blood Pressure 78 mm[Hg] 05/30/2024 13:15 Initial 8462- 4 LOINC Body Surface Area 1.65 m2 05/30/2024 13:16 Initial 3140- 1 LOINC Height 157.480 0 cm 62.00 in 05/30/2024 13:16 Initial 8302- 2 LOINC O2 Saturation 97 % 2023 13:15 Initial 99994 -5 LOINC Pulse 56.0 /min 05/30/2024 13:15 Initial 8867- 4 LOINC Temperature 36.6 Gianna 97.8 F 05/30/20 13:15 Initial 8310- 5 LOINC Weight 62.60 kg 138.00 lbs 05/30/2024 13:16 Initial 20465 -7 LOINC Assessment You had the following problems:HYPERTENSIONCLOSED FRACTURE OF BONE Hospital Discharge Instructions Should you have any questions prior to discharge, please contact a member of your healthcare team. If you have left the hospital and have any questions, please contact your primary care physician. Reason For Referral No Data Found Procedures Procedure Name Date Status Code Code Syste m Release of extensive scar tissue of eye complet ed 550670026 SNOMEDCT Extraction of cataract completed 78126894 SN OMEDCT Hematoma of skin completed 176011390 SNOMEDCT Treatment of broken foot bone at ankle complete d 8705739 SNOMEDCT Hysterectomy completed 013966810 SNOMEDCT Bladder repair completed 50038081 SNOMEDCT Problems Problem Start Date Resolved Date Status Code Code System HYPERTENSION active 36796658 SNOMED- CT CLOSED FRACTURE OF BONE active 083028 000 SNOMED-CT Allergies and Adverse Reactions Allergy Substance Reaction Severity Start Date Concern Status Co de Code System ADHESIVE Active No Known Allergies Active 700456254 SNO MED-CT Plan of Treatment Sophie Established Visit 11/08/2024 US Echo With Color (80280) 09/21/2024 Sophie Established Visit 05/09/2025 Encounters Encounter Diagnosis Start Date Code Code Sys tem Raised antibody titer 05/30/2024 SNOMED -CT Personal Care Team Section Performer Name Performer Role Active Date Inactive KODI Mead PCP - Primary care physician 2024-05-30
--- OUTSIDE RECORDS SUMMARY | 2024-12-30 09:02 | XMS_ITS ---
Author Organization Unknown Address [address] [place] [phone] Phone Care Team Providers Care Fish Filleter Name Role Phone SOPHIE HOWIE Attending Unavailable ROCCO MARIEE Primary Unavailable Immunization Immunization Date Status Additional Notes Code Code System pneumococcal polysaccharide PPV23 05/18/2014 Completed 33 CVX pneumococcal polysaccharide PPV23 06/07/2014 Completed 33 CVX zoster live 06/26/2014 Completed 121 CVX Novel [id number] 06/07/2015 Completed 127 CVX Pneumococcal conjugate PCV [...] Date Code Code System No Cognitive Impairments 84572730 SNO MED-CT Results CBC W/ DIFF - Collect Date/T tam: 10/20/2024 14:36 [facility] ID: [id number] [place], [place], [id number] LOINC: 68902-4 Test Value Unit Reference Range Code Code System Flag WBC 9.7 10^3uL L=4.8 H=10.8 RBC 4.66 10^6uL L=4.20 H=5.40 HEMOGLOBIN 14.0 g/dL L=12.0 H=16.0 718-7 LOINC HEMATOCRIT 43.6 VOL% L=37.0 H=47.0 4544-3 LOINC MCV 93.6 fL L=81.0 H=99.0 MCH 30.0 pg L=27.0 H=32.0 MCHC 32.1 g/dL L=32.0 H=36.0 PLATELETS 244 10^3uL L=100 H=400 93118-0 LOINC RDW 13.5 % L=11.7 H=15.5 %GRAN 69.4 % L=40.0 H=70.0 98899-6 LOINC %LYMPH 21.1 % L=20.0 H=45.0 736-9 LOINC %MONO 7.3 % L=2.0 H=10.0 58752-5 LOINC %EOS 1.6 % L=0.0 H=6.0 713-8 LOINC %BASO 0.3 % L=0.0 H=3.0 706-2 LOINC #NEUT 6.8 10^3uL L=1.9 H=7.6 05859-4 LOINC #LYMPH 2.1 10^3uL L=0.9 H=4.9 40252-9 LOINC #MONO 0.7 10^3uL L=0.1 H=0.9 63245-8 LOINC #EOS 0.2 10^3uL L=0.0 H=0.6 712-0 LOINC #BASO 0.03 10^3uL L=0.00 H=0.10 45978-5 LOINC #IM GRANS 0.0 10^3uL L=0.0 H=7.0 72853-2 LOINC %IM GRANS 0.3 % L=0.0 H=5.0 42537-6 LOINC %NRB 0.0 L=0.0 H=0.2 95499-2 LOINC #NRB 0.000 L=0.000 H=0.012 90525-3 LOINC MANUAL DIFF NOT INDICATED RBC MORPH NOT INDICATED COMPREHENSIVE METABOLIC PANE L - Collect Date/Time: 10/20/2024 14:36 [facility] ID: [id number] [address] [place], [place], [id number] LOINC: 68540-2 Test Value Unit Reference Range Code Code System Flag FASTING NO BUN 28 mg/dL L=7 H=20 3094-0 LOINC H CREATININE 1.10 mg/dL L=0.52 H=1.04 2160-0 LOINC H GLUCOSE 86 mg/dL L=74 H=106 2345-7 LOINC SODIUM 138 mmol/L L=132 H=144 2951-2 LOINC POTASSIUM 4.3 mmol/L L=3.5 H=5.1 2823-3 LOINC CHLORIDE 99 mmol/L L=98 H=107 2075-0 LOINC CO2 31.0 mmol/L L=22.0 H=30.0 2028-9 LOINC H ANION GAP 12 L=10 H=20 41646-6 LOINC OSMOLALITY 291 mOs/kG L=280 H=296 91247-6 LOINC BUN/CREAT 25.5 3097-3 LOINC CALCIUM 9.3 mg/dL L=8.3 H=10.5 15180-8 LOINC AST 38 U/L L=15 H=46 1920-8 LOINC ALT 27 U/L L=9 H=72 1742-6 LOINC ALKALINE PHOS 70 U/L L=38 H=126 6768-6 LOINC TOTAL BILI 0.5 mg/dL L=0.2 H=1.3 1975-2 LOINC ALBUMIN 4.3 G/dL L=3.5 H=5.0 1751-7 LOINC TOTAL PROTEIN 8.0 g/L L=6.3 H=8.2 2885-2 LOINC A/G RATIO 1.2 82045-3 LOINC AGE 84 77354-9 LOINC eGFR NON-AFR 50 ml/min eGFR AFR AMER 61 ml/min TWAN BY IFA REFLEX 11 BIOMARK ER MULTIPLE - Collect Date/Time: 10/20/2024 14:36 [facility] ID: [id number] [address] [place], [place], [id number] LOINC: 24625-4 Test Value Unit Reference Range Code Code System Flag TWAN by IFA RfxTiter/Pattern Positive 67749-0 LOINC A Homogeneous Pattern TNP 05638-0 LOINC Nucleolar Pattern TNP 86727-8 LOINC Speckled Pattern 1:640 23756-5 LOINC H Centromere Pattern TNP 5077-3 LOINC Spindle Apparatus Pattern TNP 76153-2 LOINC Nuclear Membrane Pattern TNP 87957-9 LOINC Midbody Pattern TNP 79339-3 LOINC Nuclear Dot Pattern TNP 96436-5 LOINC PCNA Pattern TNP 36906-4 LOINC Centriole Pattern TNP 99875-9 LOINC Note: COMMENT Anti-DNA (DS) Ab Qn <1 0-9 5130-0 LOINC CONSOLIDATION ACCOUNTANT Antibodies 2.3 0.0-0.9 58197-8 LOINC H Patel Antibodies <0.2 0.0-0.9 90019-2 LOINC Patel/CONSOLIDATION ACCOUNTANT Antibodies >8.0 0.0-0.9 59963-9 LOINC H Antiscleroderma-70Antib odies <0.2 0.0-0.9 10319-6 LOINC Sjogren's Anti-SS-A <0.2 0.0-0.9 33356-4 LOINC Sjogren's Anti-SS-B <0.2 0.0-0.9 00869-6 LOINC Antichromatin Antibodies 2.2 0.0-0.9 19895-5 LOINC H Antiribosomal PAntibodies <0.2 0.0-0.9 79291-8 LOINC Anti-Ana-1 <0.2 0.0-0.9 16033-0 LOINC Anti-Centromere BAntibodies <0.2 0.0-0.9 50174-4 LOINC See below: COMMENT TWAN REFLEX CHARGE? COMPLEMENT C3 REF - Collect Date/Time: 10/20/2024 14:36 [facility] ID: [id number] [address] [place], [place], [id number] LOINC: 4485-9 Test Value Unit Reference Range Code Code System Flag Complement C3, Serum 143 82-167 4485-9 LOINC COMPLEMENT C4 REF - Collect Date/Time: 10/20/2024 14:36 [facility] ID: [id number] [place], [place], [id number] LOINC: 4498-2 Test Value Unit Reference Range Code Code System Flag Complement C4, Serum 21 12-38 4498-2 LOINC Social History Type Status Start Date End Date Code Code Syst em Smoking History Never smoker (Never Smoked) 637833034 SNOMED CT Sex Female Assessment You had [...] Date Status Code Code System HYPERTENSION active 72227909 SNOMED- CT CLOSED FRACTURE OF BONE active 527296 000 SNOMED-CT Allergies and Adverse Reactions Allergy Substance Reaction Severity Start Date Concern Status Co de Code System ADHESIVE Active No Known Allergies Active 363856646 SNO MED-CT Plan of Treatment Sophie Established Visit 11/08/2024 US Echo With Color (84800) 09/21/2024 Sophie Established Visit 05/09/2025 Encounters Encounter Diagnosis Start Date Code Code Sys tem Encounter for screening for infections with a predominantly sexual mode of transmission 10/20/2024 SNOMED-CT Personal Care Team Section Performer Name Performer Role Active Date Inactive KODI Mead PCP - Primary care physician 2024-05-30
--- OUTSIDE RECORDS SUMMARY | 2024-12-30 09:03 | XMS_ITS | Clinical Summary ---
Author Organization [facility] Address [address] [place] [address] Phone Care Team Providers Care Nursing Teacher Name Role Phone KODI VALIENTE MD Primary Care Provider [phone] Reason for Visit and Chief Complaint * PHONE CALL Problems Includes: Problems addressed during this encounter and other active Problems All Visits Onset Date Resolved Date Provider Condition S tatus Chronic Obstructive Pulmonary Disease Unknown GIOVANNI POSEY NETBACKUP ADMINISTRATOR-FPJosefa, [employer] Active Last Documented On 3 2:26PM ; [facility] Essential Hypertension Unknown GIOVANNI WOODL P NETBACKUP ADMINISTRATOR-FPA, [employer]BC Active Last Documented On 3 2:26PM ; [facility] Arthralgia Unknown GIOVANNI POSEY NETBACKUP ADMINISTRATOR-FPA, [employer]-BC Active Last Documented On 3 2:25PM ; [facility] Plan of Treatment No Plan of Treatment Recorded Assessments Includes: Assessments from this encounter No Assessments Recorded Medical Equipment - Implanted Devices Includes: Current [...] On 4 10:33AM By GIOVANNI ALVAREZ ; [facility] Calcium + Vitamin D3 600-10 MG-MCG Oral Tablet 023 Provider: Diagnosis: Last Documented On 3 3:13PM By GIOVANNI ALVAREZ ; [facility] AZO Urinary Pain Relief 95 MG Oral Tablet 08/04/2023 Provider: Diagnosis: As needed. Last Documented On 3 3:13PM By GIOVANNI ALVAREZ ; [facility] Felodipine ER 5 MG Oral Tabl et Extended Release 24 Hour 11/15/2022 Provider: KODI VALIENTE MD Diagnosis: Last Documented On 3 3:13PM By GIOVANNI ALVAREZ ; [facility] Medications Administered Includes: Administered Medications from this encounter No Administered Medications Recorded Results Includes: Results discussed during this encounter No Results Recorded For Specified Dates History of Present Illness Includes: History of Present Illness from this encounter No History of Present Illness Recorded Social History Description Last Updated Tobacco non-user 08/04/2023 Last Documented On 4 3:31PM ; [facility] Difficulty walking 08/04/2023 Last Documented On 4 3:31PM ; [facility] No consumption of alcohol 08/04/2023 Last Documented On 4 3:31PM ; [facility] Not using drugs 08/04/2023 Last Documented On 4 3:31PM ; [facility] Smoking Status Unknown Procedures and Surgical History Surgical History Last Updated No Pacemaker 08/04/2023 Last Documented On 4 3:31PM ; [facility] Medical History Includes: Medical History addressed during this encounter Description Last Updated Denies a fear of falling. 08/04/2023 Last Documented On 4 3:31PM ; [facility] Has had no fall in the last 12 months. 1 10/04/2022 Last Documented On 4 3:31PM ; [facility] CT/MRI Lower body Jun 29, 2023 3 Last Documented On 4 3:31PM ; [facility] Currently wearing eyeglasses 08/04/2023 Last Documented On 4 3:31PM ; [facility] Moderate to severe pain 08/04/2023 Last Documented On 4 3:31PM ; [facility] No Pain Pump 08/04/2023 Last Documented On 4 3:31PM ; [facility] No Spinal cord stimulator 08/04/2023 Last Documented On 4 3:31PM ; [facility] Other method: 08/04/2023 Last Documented On 4 3:31PM ; [facility] Please list all illnesses/co nditions you have been diagnosed with: Blood pressure mild copd 08/04/2023 Last Documented On 4 3:31PM ; [facility] Please list all surgeries: B roken ankle Sep 1999 , 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 Subural Hematoma 06 29 2016 Bladder repair & hysterectomy 12 20 201708/04/2023 Last Documented On 4 3:31PM ; [facility] X-rays Lower body Jun 16 2023 08/04/2023 Last Documented On 4 3:31PM ; [facility] Family History Includes: Family History addressed during this encounter Description Last Updated Maternal history of Arthritis 08/04/2023 Last Documented On 4 3:31PM ; [facility] Paternal history of family history of is chemic heart disease 08/04/2023 Last Documented On 4 3:31PM ; [facility] Review of Systems Includes: Review of Systems from this encounter No Review of Systems Recorded Mental Status Includes: Mental Status from this encounter No Mental Status Recorded Functional Status Includes: Functional Status from this encounter No Functional Status Recorded Physical Exam Includes: Physical Exam from this encounter No Physical Exam Recorded Allergies Includes: Active Allergies Substance Type Reaction Onset Date Resolved Date Statu s Adhesive Tape Allergy 08/04/2023 Activ e Last Documented On 4 10:12AM ; [facility] Encounters Encounter Provider Location Date Check-In Time Check-Out Time Diagnosis * PHONE CALL GIOVANNI Trini POSEY APRN-FPA, [employer]BC 02/23/2024 3:31PM 11:59PM Insurance Includes: Active Insurance Policies Plan Name Member ID Group # Subscriber Relationship Effect sophy Dates 1 - MEDICARE PART A CLAIMS/NGS [id number] FAUSTO Vazquez 2 - [facility] [id number] FAUSTO Vazquez Clinical Notes Includes: Clinical Notes from this encounter * Progress note Date Encounter Last Documented by 02/23/2024 * PHONE CALL Last documented on 02/23/2024; 3:49 PM, GIOVANNI Feliz TATY NETBACKUP ADMINISTRATOR-FPA, [employer]BC; [facility] Active Problems & Conditions - [...]
[2024-12-30 09:18] LABS: Hemoglobin 13.5 g/dL (11.7-13.8); Mean Corpuscular HGB Conc 31.4 g/dL (32-36); Mean Corpuscular Hemoglobin 29.9 pg (27.0-31.0); Mean Corpuscular Volume 95.3 fL (78.0-102.0); Mean Platelet Volume 9.9 fl (9.2-11.8); Platelet Count Result 244 K/mm3 (150-420); Red Blood Count 4.51 M/mm3 (4.20-5.40); Red Cell Distribution Width 13.2 % (11.6-14.4); White Blood Count 5.7 K/mm3 (4.8-10.8)
[2024-12-30 11:09] LABS: Alanine Aminotransferase 26 U/L (14-59); Albumin Level 3.5 g/dL (3.4-5.0); Alkaline Phosphatase 93 U/L (46-116); Anion Gap 7 mmol/L (4-12); Aspartate Amino Transferase 33 U/L (15-37); Bilirubin,Total 0.6 mg/dL (0.00-1.00); Blood Urea Nitrogen 27 mg/dL (7-18); Calcium 9.1 mg/dL (8.5-10.1); Carbon Dioxide 32 mmol/L (21-32); Chloride 105 mmol/L (98-108); Estimated Glomerular Filt Rate 54; Glucose 52 mg/dL (70-99); NT Pro B Type Natriuretic Pept 209 pg/mL (0-450); Osmolality Calculated 300 mOsm/kg (285-295); Potassium 4.4 mmol/L (3.5-5.1); Sodium 144 mmol/L (136-145); Total Protein 7.1 g/dL (6.4-8.2)
[2025-01-02 06:48] LABS: CRP 0.5 mg/dL (<1.0)
== END 2024-12-30 08:49 | disposition home or self-care (01) ==
PROVIDERS: PCP Internal Medicine; Visit Provider Internal Medicine
DX: R06.00 Dyspnea, unspecified (principal); M54.50 Low back pain, unspecified
CPT/HCPCS: 36415; 80053; 83880; 85027; 86140

== ENCOUNTER 2025-05-17 08:08 | Outpatient (RCR) | payer MEDICARE, SELFPAY ==
--- NOTE | 2025-05-17 09:03 | OPREHPOC ---
Outpatient Therapy Plan of Care This is a Multidisciplinary Plan of Care that may contain components documented by all disciplines (PT, OT, and ST.) PT Problem 1 PT Problem #1 Knowledge Deficit PT Goal 1 Goal / Goal Update The patient will be independent in a home exercise program. Target Visit 2 PT Problem 2 PT Problem #2 Impaired Functional Mobility PT Goal 1 Goal / Goal Update The patient will demonstrate 20% or less self perceived disability per the Back Index questionnaire. The patient will ambulate 1,000 feet during the 6 MWT to improve community ambulation. Target Visit 10 PT Problem 3 PT Problem #3 Pain PT Goal 1 Goal / Goal Update The patient will report no greater than 2/10 low back pain with standing and walking of 15+ minutes . Target Visit 10 PT Problem 4 PT Problem #4 Impaired Strength PT Goal 1 Goal / Goal Update The patient will improve upper and lower abdominal strength to 3+/5 or greater. The patient will improve bilateral hip abduction and extension strength to 4-/5 or greater. Target Visit 10
--- NOTE | 2025-05-17 09:03 | PTOPEVAL1 ---
Assessment and note entered by Chacha Carolina, PT Evaluation Information Assessment Status Evaluation ICD-10 Condition Codes (PT) Pain in low back M54.50 Subjective Information Carly Ellison reports she has had low back pain for a long time and noticed weakness in her legs a couple years ago. She had a procedure done in September 2024 to scrape the arthritis and help her spinal stenosis. She had PT at another facility in October that helped a little but not enough. She continues to have pain in the lower back and out to both hips. She is no longer having pain in her legs though. She notes pain is worse with bending slightly forward to work on things at the counter or sink. She also notes difficulty walking after standing up. She has no pain when she lays down. She uses tylenol with codeine and tylenol arthritis. She also uses a heating pad that helps. Reported Pain Level Pain Score 4: Self Report Assessment PT Clinical Summary Carly Ellison presents with chronic low back pain and LE weakness. She has been diagnosed with spinal stenosis and underwent a non-surgical procedure in September 2024 to address the stenosis. She continues to have central lower back pain and notes difficulty standing up and walking. 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 She objectively demonstrates decreased lumbar lateral flexion AROM bilaterally, decreased piriformis flexibility, decreased core and hip strength, altered gait, and scoliotic posture. She will benefit from skilled PT to address these limitations and improve her daily function. Plan of Care Interventions Electrical Stimulation,Hot Pack/Cold Pack,Manual Therapy,Neuro Re-education,Patient/Caregiver Education,Therapeutic Activities,Therapeutic Exercise PT Services Indicated Yes Treatment Frequency and 2 times a week for 10 visits Duration These treatments will address the objective and functional deficits as defined above. The patient will be advanced safely and appropriately in order for the patient to progress towards his/her prior level of function. Additional exercises will be introduced and as well as a comprehensive home exercise program upon discharge, if needed, ?to ensure carryover of functional gains achieved in the clinic. This treatment plan has been reviewed and agreement upon by the patient.
--- NOTE | 2025-06-20 08:49 | OPREHPOC ---
Outpatient Therapy Plan of Care This is a Multidisciplinary Plan of Care that may contain components documented by all disciplines (PT, OT, and ST.) PT Problem 1 PT Problem #1 Knowledge Deficit PT Goal 1 Goal / Goal Update The patient will be independent in a home exercise program. Target Visit 2 Progress Met PT Problem 2 PT Problem #2 Impaired Functional Mobility PT Goal 1 Goal / Goal Update The patient will demonstrate 20% or less self perceived disability per the Back Index questionnaire. -met The patient will ambulate 1,000 feet during the 6 MWT to improve community ambulation. -met Target Visit 10 Progress Met PT Problem 3 PT Problem #3 Pain PT Goal 1 Goal / Goal Update The patient will report no greater than 2/10 low back pain with standing and walking of 15+ minutes . Target Visit 10 PT Problem 4 PT Problem #4 Impaired Strength PT Goal 1 Goal / Goal Update The patient will improve upper and lower abdominal strength to 3+/5 or greater. -met The patient will improve bilateral hip abduction and extension strength to 4-/5 or greater. -met Target Visit 10
--- NOTE | 2025-06-20 08:49 | PTOPDC ---
Assessment and note entered by Chacha Carolina, PT Evaluation Information Assessment Status Discharge ICD-10 Condition Codes (PT) Pain in low back M54.50 Subjective Information Carly Ellison reports she is doing better overall. She notes she can get out of chairs easier, can walk easier, and stands taller. She does still have low back pain intermittently but feels she knows how to handle it better. Reported Pain Level Pain Score 3: Self Report Assessment PT Clinical Summary Carly Ellison has completed 10 skilled PT visits for chronic low back pain and LE weakness. She has been diagnosed with spinal stenosis and underwent a non-surgical procedure in September 2024 to address the stenosis. She is reporting improved ability to get out of chairs, improved walking, and notes she stands taller. Her pain is improved overall but still comes and goes and does occasionally limit how long she can stand. She demonstrates improved core and hip strength, improved endurance, and improved flexibility. She has met 100% of her goals and will be discharged to an independent HEP. Plan of Care PT Services Indicated No
== END 2025-06-20 20:00 | disposition home or self-care (01) ==
LOC: CHSPT 08:08
DX: M48.061 Spinal stenosis, lumbar region without neurogenic claudication (principal); M19.90 Unspecified osteoarthritis, unspecified site
CPT/HCPCS: 97014; 97110; 97112; 97161; 97530; 97750; G0283